=== PATIENT | male | born 1960 | race Caucasian/White ===

== ENCOUNTER 2016-04-03 15:37 | Emergency (ER) | payer OTHER ==
[~2016-04-03] VITALS: Ht 180.3 cm; Wt 83.9 kg
--- NOTE | 2016-04-03 16:14 | ED Headache ---
General Chief Complaint: Head/Cervical Problems Stated Complaint: DIZZY, HEADACHE, BLURRED VISION Nursing Triage Note: PT REPORTS HEADACHE OFF AND ON FOR SEVERAL DAYS. PT ALSO REPORTS DIZZINESS. PT ALSO REPORTS DIFFICULTY SEEING OUT OF R EYE STARTING SINCE YESTERDAY EVENING. Nursing Sepsis Screen: No Definite Risk Source: patient Exam Limitations: no limitations History of Present Illness Time seen by provider: 16:07 Initial Comments Patient presents with 3-4 weeks of malaise followed by 3 days most recently with a headache every day lasting for 2-3 hours accompanied by blindness in his right eye. He does not have a history of headaches or migraines never had this neurologic symptoms before. He has no other problems with his gait or mobility. He is taken out of [place] and that helps the headache some. He describes a headache as non-throbbing constant lasting about 1-3 hours feeling" behind his right eye like a softball. He also describes she's had upper respiratory symptoms for the past few weeks. The patient states he has had some chills with past couple days but denies having a thermometer. He has also been taking ibuprofen around the clock 3-4 pills every 6-8 hours. Allergies and Home Medications Allergies Coded Allergies: Penicillins (Verified Allergy, Unknown, 04/03/16) Home Medications No Active Prescriptions or Reported Meds Constitutional: chillsNo diaphoresis, No dizziness, No fever, malaiseNo weakness Eyes: Blindness (right eye with HAAS)Denies Blurred Vision, Denies Drainage, Denies Decreased Acuity, Denies Foreign Body Sensation, Denies Pain Ears, Nose, Mouth, Throat: denies ear pain, denies ear discharge Respiratory: cough (occ)No short of breath Cardiovascular: No chest pain, No edema, No syncope Gastrointestinal: No abdominal pain, No constipation, No diarrhea Genitourinary: No dysuria, No frequency Musculoskeletal: No back pain, No neck pain Skin: No pruritus, No rash Psychiatric/Neurological: HeadacheDenies Numbness, Denies Paresthesia Past Ukjdvix-Zqscaa-Ihbfsl Hx Patient Social History Alcohol Use: Occasionally Uses Recreational Drug Use: No Smoking Status: Never a Smoker Recent Foreign Travel: No Contact w/Someone Who Travel: No Recent Infectious Disease Expo: No Recent Hopitalizations: No Physical Abuse Screen: No Sexual Abuse: No Seasonal Allergies Seasonal Allergies: No Surgeries HX Surgeries: No Respiratory Hx Respiratory Disorders: No Cardiovascular Hx Cardiac Disorders: No Neurological Hx Neurological Disorders: No Reproductive System Hx Reproductive Disorders: No Genitourinary Hx Genitourinary Disorders: No Gastrointestinal Hx Gastrointestinal Disorders: No Musculoskeletal Hx Musculoskeletal Disorders: No Endocrine Hx Endocrine Disorders: No HEENT HX ENT Disorders: No Cancer Hx Cancer: No Psychosocial Hx Psychiatric Problems: No Integumentary HX Skin/Integumentary Disorder: No Blood Transfusions Hx Blood Disorders: No Physical Exam Vital Signs Vital Sign - Last 12Hours 04/03/16 15:46 Temp 97.9 Pulse 58 Resp 18 B/P 166/102 Pulse Ox 96 Capillary Refill : Less Than 3 Seconds General Appearance: WD/WN mild distress HEENT: PERRL/EOMI pharynx normal other (TMs bilaterally with retraction right worse than left and clear serous effusion. Canals clear without erythema or lesion.) Neck: non-tender full range of motion supple normal inspection Cardiovascular: normal peripheral pulses regular rate, rhythm no edema no JVD Respiratory: chest non-tender lungs clear normal breath sounds Gastrointestinal: normal bowel sounds non tender soft Back: normal inspection no vertebral tenderness Extremities: normal range of motion non-tender normal inspection Psychiatric: alert oriented x 3 Crainal Nerves: normal hearing normal speech PERRL other (cranial nerves II through XII intact) Coordination/Gait: normal finger to nose normal gait Motor/Sensory: no motor deficit no sensory deficit no pronator drift Reflexes: 2+ Bicep (R), 2+ Bicep (L) Skin: normal color warm/dry Progress/Results/Core Measures Results/Orders Lab Results Laboratory Tests Test 04/03/16 16:40 Range/Units Anion Gap 10 5-14 MMOL/L BUN/Creatinine Ratio 14 Basophils # (Auto) 0.0 0.0-0.1 10^3/uL Basophils (%) (Auto) 0 0-10 % Blood Urea Nitrogen 15 7-18 MG/DL Calcium Level 8.4 L 8.5-10.1 MG/DL Carbon Dioxide Level 20 L 21-32 MMOL/L Chloride Level 108 H 98-107 MMOL/L Creatinine 1.10 0.60-1.30 MG/DL Eosinophils # (Auto) 0.1 0.0-0.3 10^3/uL Eosinophils (%) (Auto) 2 0-10 % Estimat Glomerular Filtration Rate > 60 Glucose Level 117 H 70-105 MG/DL Hematocrit 39 L 40-54 % Hemoglobin 13.9 13.3-17.7 G/DL Lymphocytes # (Auto) 1.5 1.0-4.0 X 10^3 Lymphocytes (%) (Auto) 27 12-44 % Mean Corpuscular Hemoglobin 32 25-34 PG Mean Corpuscular Hemoglobin Concent 35 32-36 G/DL Mean Corpuscular Volume 90 80-99 FL Mean Platelet Volume 9.3 7.4-10.4 FL Monocytes # (Auto) 0.4 0.0-1.0 X 10^3 Monocytes (%) (Auto) 8 0-12 % Neutrophils # (Auto) 3.5 1.8-7.8 X 10^3 Neutrophils (%) (Auto) 64 42-75 % Platelet Count 199 130-400 10^3/uL Potassium Level 3.9 3.6-5.0 MMOL/L Red Blood Count 4.37 4.35-5.85 10^6/uL Red Cell Distribution Width 12.0 10.0-14.5 % Sodium Level 138 135-145 MMOL/L White Blood Count 5.5 4.3-11.0 10^3/uL Micro Results Microbiology 04/03/16 Influenza Types A,B Antigen (GLORIA) - Final, Complete My Orders Orders-CARMEN RIVERA MD Ct Head Wo (04/03/16 16:15) Basic Metabolic Panel (04/03/16 16:15) Cbc With Automated Diff (04/03/16 16:15) Influenza A And B Antigens (04/03/16 16:15) Ketorolac Injection (Toradol Injection) (04/03/16 16:15) Ondansetron Oral Dissolve Tab (Zofran (04/03/16 16:15) Saline Lock/Iv-Start (04/03/16 16:15) Ns (Ivpb) (Sodium C... W/Nicardipine Iv (04/03/16 17:30) Vital Signs/I&O Vital Sign - Last 12Hours 04/03/16 15:46 Temp 97.9 Pulse 58 Resp 18 B/P 166/102 Pulse Ox 96 Blood Pressure Mean: 123 Progress Note : Time: 16:23 Progress Note Patient with a new onset of migrainous-type headaches behind the right eye recurring after 3-4 weeks of malaise that may be related to viral illness, migraine headaches CVA or mass. We will scan his head with a CT without. Obtain CBC, BMP and treat his symptoms with NSAIDs and Zofran for now. Diagnostic Imaging Diagonstic Imaging: CT Plain Films/CT/US/NM/MRI: head Comments Right occiput mass/bleed without midline deviation. Surrounding edema. NAME: VIVEK FIERRO [facility] REC#: [id number] PHYSICIAN: CARMEN RIVERA MD CC: MERY COLLAZO DO; CARMEN RIVERA MD Page 1 of 1 RADIOLOGY REPORT VIA [facility]. [place], [place] CC: MERY COLLAZO DO; CARMEN RIVERA MD Page 1 of 1 RADIOLOGY REPORT NAME: VIVEK FIERRO [facility] REC#: [id number] PT STATUS: REG ER : 1960 PHYSICIAN: CARMEN RIVERA MD ADMIT DATE: 04/03/16/ER Signed Date of Exam: 04/03/16 CT HEAD WO PROCEDURE: CT head without contrast. TECHNIQUE: Multiple contiguous axial images were obtained through the brain without the use of intravenous contrast. INDICATION: Headache and dizziness. COMPARISON: None. FINDINGS: There is a 2.2 cm x 2.3 cm acute right occipital lobe hemorrhage with mild surrounding edema. This is a location suggestive of a hypertensive hemorrhage but is nonspecific. There is no midline shift. No additional intracranial hemorrhage is seen. Euceda-white junction appears preserved. The ventricles appear normal. No osseous abnormality is seen. Paranasal sinuses and mastoids appear clear. IMPRESSION: There is a 2.3 cm acute right occipital lobe hemorrhage of uncertain etiology although the location is suggestive of a hypertensive bleed. Findings were phoned to Dr. Rivera in the [facility] ER at the time of dictation. Dictated by: Dictated on workstation # [id number] Dict: 04/03/161646 Trans: 04/03/161656 [facility] [id number] Interpreted by: MERY COLLAZO DO Electronically signed by:MERY COLLAZO DO 04/03/16 1659 Time of Consult: 17:01 Reviewed: Reviewed by Me Consults Consults : Consults Notes Dr Braun, Neurosurgery [place], [place]. Recommends we send him to [place] [facility] by [facility]. ED Dr at [facility] accepts transfer of stable pt. Transfer of Care Care transferred to: ward ED Departure Impression Impression: Primary Impression: Hemorrhagic cerebrovascular accident (CVA) Disposition: XFER SHT-TRM HOSP Condition: Stable (ERASED) Transfer Transfer Notes Transfer to [facility] by [facility]. Transfer Time: 18:00 Method of Transfer: EMS Departure-Patient Inst. Decision time for Depature: 17:00 Referrals: TIP SAWYER MD (PCP/Family) Primary Care Physician Scripts No Active Prescriptions or Reported Meds CARMEN RIVERA MD Apr 03, 2016 16:14
[2016-04-03] MEDS ORDERED: KETOROLAC 30 MG/ML VIAL IVP STA (16:15)
[2016-04-03] MEDS ORDERED: ONDANSETRON 4 MG (ZOFRAN) ORAL DISSOLVE TAB SL STA (16:15)
[2016-04-03 16:49] LABS: BASOPHILS % (AUTO) 0 % (0-10); EOSINOPHILS # (AUTO) 0.1 10^3/uL (0.0-0.3); EOSINOPHILS % (AUTO) 2 % (0-10); LYMPHOCYTES # (AUTO) 1.5 X 10^3 (1.0-4.0); LYMPHOCYTES % (AUTO) 27 % (12-44); MEAN CORPUSCULAR HEMOGLOBIN 32 PG (25-34); MEAN CORPUSCULAR HGB CONC 35 G/DL (32-36); MEAN CORPUSCULAR VOLUME 90 FL (80-99); MEAN PLATELET VOLUME 9.3 FL (7.4-10.4); MONOCYTES # (AUTO) 0.4 X 10^3 (0.0-1.0); MONOCYTES % (AUTO) 8 % (0-12); NEUTROPHILS # (AUTO) 3.5 X 10^3 (1.8-7.8); NEUTROPHILS % (AUTO) 64 % (42-75); PLATELET COUNT 199 10^3/uL (130-400); RED BLOOD COUNT 4.37 10^6/uL (4.35-5.85); WHITE BLOOD COUNT 5.5 10^3/uL (4.3-11.0)
--- NOTE | 2016-04-03 16:56 | Diagnostic Imaging Report ---
PROCEDURE: CT head without contrast. TECHNIQUE: Multiple contiguous axial images were obtained through the brain without the use of intravenous contrast. INDICATION: Headache and dizziness. COMPARISON: None. FINDINGS: There is a 2.2 cm x 2.3 cm acute right occipital lobe hemorrhage with mild surrounding edema. This is a location suggestive of a hypertensive hemorrhage but is nonspecific. There is no midline shift. No additional intracranial hemorrhage is seen. Euceda-white junction appears preserved. The ventricles appear normal. No osseous abnormality is seen. Paranasal sinuses and mastoids appear clear. IMPRESSION: There is a 2.3 cm acute right occipital lobe hemorrhage of uncertain etiology although the location is suggestive of a hypertensive bleed. Findings were phoned to Dr. Rivera in the [facility] ER at the time of dictation. Dictated by: Dictated on workstation # [id number]
[2016-04-03 17:11] LABS: ANION GAP 10 MMOL/L (5-14); BLOOD UREA NITROGEN 15 MG/DL (7-18); BUN/CREATININE RATIO 14; CALCIUM 8.4 MG/DL (8.5-10.1); CARBON DIOXIDE 20 MMOL/L (21-32); CHLORIDE 108 MMOL/L (98-107); GFR ESTIMATED > 60; GLUCOSE 117 MG/DL (70-105); POTASSIUM 3.9 MMOL/L (3.6-5.0); SODIUM 138 MMOL/L (135-145)
[2016-04-03] MEDS ORDERED: NS (IVPB) 250 ML ONE (17:28)
[2016-04-03] MEDS ORDERED: niCARdipine IV 50 MG in NS (IVPB) 230 ML IV SCH (17:30)
[2016-04-03 17:59] VITALS: BP 145/84
== END 2016-04-03 17:59 | disposition short-term general hospital (02) ==
LOC: EDUNIT# 15:37 → ER 15:39
DX: I61.9 Nontraumatic intracerebral hemorrhage, unspecified (principal)
CPT/HCPCS: 36415; 70450; 80048; 85025; 87804; 96374; 96375

== ENCOUNTER → 2016-06-07 | Outpatient (CLI) | payer OTHER ==
[2016-06-07 11:57] LABS: BASOPHILS % (AUTO) 0 % (0-10); EOSINOPHILS # (AUTO) 0.1 10^3/uL (0.0-0.3); EOSINOPHILS % (AUTO) 1 % (0-10); LYMPHOCYTES # (AUTO) 1.8 X 10^3 (1.0-4.0); LYMPHOCYTES % (AUTO) 37 % (12-44); MEAN CORPUSCULAR HEMOGLOBIN 31 PG (25-34); MEAN CORPUSCULAR HGB CONC 35 G/DL (32-36); MEAN CORPUSCULAR VOLUME 91 FL (80-99); MEAN PLATELET VOLUME 9.4 FL (7.4-10.4); MONOCYTES # (AUTO) 0.4 X 10^3 (0.0-1.0); MONOCYTES % (AUTO) 8 % (0-12); NEUTROPHILS # (AUTO) 2.6 X 10^3 (1.8-7.8); NEUTROPHILS % (AUTO) 54 % (42-75); PLATELET COUNT 195 10^3/uL (130-400); RED BLOOD COUNT 4.69 10^6/uL (4.35-5.85); RED CELL DISTRIBUTION WIDTH 12.7 % (10.0-14.5); WHITE BLOOD COUNT 4.9 10^3/uL (4.3-11.0)
[2016-06-07 12:22] LABS: ALANINE AMINOTRANSFERASE 26 U/L (0-55); ALBUMIN 4.2 G/DL (3.2-4.5); ANION GAP 11 MMOL/L (5-14); ASPARTATE AMINO TRANSFERASE 21 U/L (5-34); BILIRUBIN,TOTAL 0.5 MG/DL (0.1-1.0); BLOOD UREA NITROGEN 16 MG/DL (7-18); BUN/CREATININE RATIO 18; CALCIUM 9.2 MG/DL (8.5-10.1); CARBON DIOXIDE 21 MMOL/L (21-32); CHLORIDE 110 MMOL/L (98-107); CREATININE SERUM 0.89 MG/DL (0.60-1.30); GFR ESTIMATED > 60; GLUCOSE 107 MG/DL (70-105); POTASSIUM 4.1 MMOL/L (3.6-5.0); SODIUM 142 MMOL/L (135-145); TOTAL PROTEIN 7.4 G/DL (6.4-8.2)
== END ==
LOC: LAB 11:39
PROVIDERS: ATTEND Family Medicine
DX: R10.84 Generalized abdominal pain (principal)
CPT/HCPCS: 36415; 80053; 85025

== ENCOUNTER → 2016-06-10 | Outpatient (CLI) | payer OTHER ==
[~2016-06-10] MED LIST: CATHETER FLUSH 10 ML SYR IV PRN; GADOBUTROL 10 MMOL/10 ML (GADAVIST) VIAL IV ONE; IOHEXOL 350 MG/ML 100 ML (OMNIPAQUE 350) VIAL IV ONE; NS 100 ML (IVPB) BAG IV ONE
--- NOTE | 2016-06-10 11:54 | Diagnostic Imaging Report ---
PROCEDURE: MR imaging of the brain with and without contrast. TECHNIQUE: Multiplanar, multisequence MR imaging of the brain was performed with and without contrast. INDICATION: Brain hemorrhage in the right parietal region seen on CT scan of 04/03/2016. 8 mL of Gadavist is administered intravenously. FINDINGS: The location of the previously seen hemorrhage demonstrates signal abnormality covering an area smaller to the region of hemorrhage noted by CT scan on 04/03/2016. There is minimal peripheral enhancement around the region which would relate to hemorrhagic remnants. The surrounding hyperemia could relate to evolution of the hemorrhage and gliosis rather than underlying abnormal vascularity or enhancing nodule. There is minimal periventricular and deep white matter T2 hyperintense areas compatible with chronic microvascular ischemic changes. There is no hydrocephalus. No significant extra-axial fluid collection is seen. The pituitary gland is normal in size. No hypothalamic or pineal region mass. IMPRESSION: Right parietal hemorrhage evolution is seen with signal intensity reflecting remaining blood products are noted. The area of involvement is now smaller compared to 04/03/2016. The minimal surrounding enhancement could be reactive without definitive underlying nodule or vascular anomaly. An enhanced MRI with contrast is recommended in three months to ensure further expected evolution of a simple hemorrhage and resolution of the associated minimal enhancement. Dictated by: Dictated on workstation # [id number]
--- NOTE | 2016-06-10 12:21 | Diagnostic Imaging Report ---
PROCEDURE: CT chest with contrast, CT abdomen and pelvis with and without contrast. TECHNIQUE: Pre and post intravenous contrast axial imaging of the abdomen and pelvis and post contrast axial imaging of the chest were performed. INDICATION: Generalized abdominal pain. Followup of kidney and lung nodules seen on outside exam. The outside exam was requested however is not available at the time of the interpretation. 100 mL of Omnipaque 350 is administered intravenously. FINDINGS: CT CHEST: There is a pulmonary nodule in the right lower lobe, axial image 29 measuring 1.3 cm. There is surrounding mild interstitial thickening and groundglass opacity particularly along its upper aspect. It is located in the superior segment of the right lower lobe at the level of the hilum. Another nodule measuring 4 mm in axial image 31 in the right middle lobe along the minor fissure seen. Another 4 mm nodule along the major fissure in the perihilar region is also seen, also on axial image 31. There are calcified granulomas in the left lower lobe. No significant consolidation or mass seen otherwise in the lungs. The thoracic aorta is normal in caliber. The heart size is normal. No pericardial or pleural effusion. No significantly enlarged mediastinal or hilar lymph nodes. No axillary lymphadenopathy of significance. The osseous structures appear grossly unremarkable. CT ABDOMEN AND PELVIS: There is diffuse hepatic steatosis. The gallbladder demonstrates no calcified stone. The pancreas, and adrenals appear unremarkable. The spleen is mildly enlarged measuring 15.5 x 5.8 x 10.3 cm in size. The kidneys have symmetric enhancement and contrast excretion. In the lower pole of the left kidney, there is an anteriorly exophytic mass measuring 1.5 cm with post contrast enhancement noted. It appears to have low density components compatible with fat. This is suggestive of an angiomyolipoma. The lower pole of the right kidney demonstrates a cystic mass with suggestion of a small enhancing nodule measuring 4 mm in its inferior aspect. This appears to be within an exophytic portion of the cystic lesion best seen on the coronal projection measuring 1.3 cm. The overall measurement of the cystic lesion is 3.6 cm. There is no hydronephrosis. The unenhanced phase demonstrates no stones. The abdominal aorta is normal in caliber. No para-aortic significantly enlarged lymph nodes seen. No significant free fluid or fluid collection in the abdomen or pelvis is noted. There is sigmoid diverticulosis. No diverticulitis. The prostate gland is slightly prominent measuring 4.5 cm in transverse dimension. The osseous structures demonstrate minimal degenerative changes. IMPRESSION: CT CHEST: Indeterminate 1.3 cm superior segment right lower lobe nodule and 4 mm nodules along the major and minor fissure on the right side are nonspecific. Based on the surrounding groundglass opacity, this could be infectious versus neoplastic. Clinical correlation and further evaluation with PET/CT, or if not performed a three-month followup CT chest is recommended. CT ABDOMEN AND PELVIS: 1. Exophytic 1.5 cm lower pole left kidney mass has enhancing components but also has intra-tumoral fat. This may relate to an angiomyolipoma. 2. Predominantly cystic 3.6 cm lesion exophytic from the lower pole of the right kidney with suggestion of a tiny focus of enhancement inferiorly measuring 4 mm. This could be within a septation and not necessarily a malignant component. Close followup with a three-month renal mass protocol CT scan is recommended. Dictated by: Dictated on workstation # [id number]
== END ==
LOC: RAD 09:41
PROVIDERS: ATTEND Family Medicine
DX: I62.00 Nontraumatic subdural hemorrhage, unspecified (principal); I69.398 Other sequelae of cerebral infarction; R20.9 Unspecified disturbances of skin sensation; R10.84 Generalized abdominal pain; N28.89 Other specified disorders of kidney and ureter
CPT/HCPCS: 70553; 71260; 74178

== ENCOUNTER → 2016-07-05 | Outpatient (CLI) | payer OTHER ==
[~2016-07-05] VITALS: Ht 180.3 cm; Wt 84.4 kg
[~2016-07-05] MED LIST changes: -CATHETER FLUSH 10 ML SYR IV PRN; -GADOBUTROL 10 MMOL/10 ML (GADAVIST) VIAL IV ONE; -IOHEXOL 350 MG/ML 100 ML (OMNIPAQUE 350) VIAL IV ONE; -NS 100 ML (IVPB) BAG IV ONE; +REGADENOSON 0.4 MG/5 ML SYR (LEXISCAN) IV ONE
[2016-07-05] MEDS: CATHETER FLUSH 10 ML SYR IV PRN ×2 (11:35→12:59)
[2016-07-05 12:55] VITALS: BP 119/89
--- NOTE | 2016-07-06 11:31 | ECHOCARDIOGRAPHY REPORT ---
DATE OF SERVICE: 07/05/2016 ORDERING PHYSICIAN: Dr. Irene. REFERRING PHYSICIAN: Dr. Ko. CLINICAL DIAGNOSES: Chest discomfort, syncope. MEASUREMENTS: 1. Left atrium 4.5. 2. Aortic root 2.9. 3. LV diameter, diastolic 5.2. 4. IVS thickness, diastolic 1.1. 5. LVPW thickness, diastolic 1.0. DESCRIPTION: Two-dimensional echocardiography shows normal global left ventricular systolic function with normal regional wall motion. Aortic, mitral and tricuspid valve leaflets show good leaflet excursion. There is no significant pericardial effusion. Aortic valve is trileaflet and the leaflets exhibit mild sclerosis and calcification. There is no Doppler evidence of any significant valvular stenosis. There is no Doppler evidence of any significant valvular regurgitation. Only trivial mitral regurgitation is seen. There is no evidence of any significant intracardiac shunt on this transthoracic echocardiographic study. Inferior vena cava appears to be mildly dilated. Pulmonary artery systolic pressure could not be reliably estimated on this study. CONCLUSIONS: 1. Normal global left ventricular systolic function with an ejection fraction of approximately 65%. 2. Mild aortic valve sclerosis without evidence of any significant valvular stenosis. 3. No significant valvular regurgitation. Job ID: [id number] DocumentID: [id number] Dictated Date: 07/05/2016 17:04:30 Electronics Utility Worker Date: 07/06/2016 10:22:00 Dictated By: GERMÁN IRENE MD, MA, FACP, FACC,
--- NOTE | 2016-07-06 14:51 | STRESS TEST ---
DATE OF SERVICE: 07/05/2016 RESTING AND POST REGADENOSON TECHNETIUM 99M TETROFOSMIN SPECT CT IMAGING ORDERING PHYSICIAN: Dr. Ally Irene. PRIMARY PHYSICIAN: Dr. oK. CLINICAL DIAGNOSIS: Chest discomfort, syncope, hypertension, hyperlipidemia. Baseline images were carried out after injection of 10.47 mCi of etaxkwecmx-86s-vtvsodolbhi. This was followed by 0.4 mg of regadenoson and 30.3 mCi of technetium 99m-tetrofosmin for stress imaging. The electrocardiogram showed sinus rhythm at baseline and the electrocardiogram did not change significantly with the regadenoson infusion. Incomplete right bundle branch block is seen on the electrocardiogram. The patient tolerated the procedure well. Review of images at rest and following stress does not indicate any distinct perfusion defects consistent with significant myocardial ischemia or infarction. Gaited images show normal global left ventricular systolic function without regional wall motion abnormality. Left ventricular ejection fraction is calculated to be 64%. Left ventricular end diastolic volume is 77 mL. TID is absent (0.94). CONCLUSIONS: 1. No evidence of any significant myocardial ischemia or infarction on this study. 2. Normal regional wall motion. 3. Normal global left ventricular systolic function with a calculated ejection fraction of 64%. 4. Normal left ventricular cavity size. Job ID: [id number] DocumentID: [id number] Dictated Date: 07/05/2016 16:22:04 Unit Aide Date: 07/06/2016 08:17:40 Dictated By: ALLY IRENE MD, MA, FACP, FACC,
== END ==
LOC: CARD 09:02
PROVIDERS: ATTEND Internal Medicine Cardiovascular Disease
DX: I10 Essential (primary) hypertension (principal); E78.4 Other hyperlipidemia; R07.89 Other chest pain; R55 Syncope and collapse
CPT/HCPCS: 78452; 93017; 93306

== ENCOUNTER → 2016-09-23 | Outpatient (CLI) | payer OTHER ==
[2016-09-23 16:48] LABS: BLOOD UREA NITROGEN 18 MG/DL (7-18); BUN/CREATININE RATIO 16; GFR ESTIMATED > 60
== END ==
LOC: LAB 16:12
PROVIDERS: ATTEND Family Medicine
DX: N28.89 Other specified disorders of kidney and ureter (principal); R91.1 Solitary pulmonary nodule; I62.00 Nontraumatic subdural hemorrhage, unspecified
CPT/HCPCS: 36415; 82565; 84520

== ENCOUNTER → 2016-09-30 | Outpatient (CLI) | payer OTHER ==
[~2016-09-30] MED LIST changes: +GADOBUTROL 10 MMOL/10 ML (GADAVIST) VIAL IV ONE; -REGADENOSON 0.4 MG/5 ML SYR (LEXISCAN) IV ONE
--- NOTE | 2016-09-30 10:15 | Diagnostic Imaging Report ---
CLINICAL INDICATION: Patient has history of a stroke on 04/01/2016. Patient has a history of melanoma on back over 15 years ago. Patient has headaches off-and-on. EXAM: An MRI of the brain was performed without and with 8 cc of Gadovist IV contrast. Sequences include axial DWI, ADC map, axial gradient echo, axial T2, axial FLAIR, axial T1, axial T1 post IV contrast, coronal T1 fat-sat post IV contrast, and sagittal T1 post IV contrast. COMPARISON: MRI of the brain performed without and with IV contrast dated 06/10/2016. FINDINGS: There is interval development of a 4 mm focal area of diffusion restriction involving the posterior aspect of the right occipital lobe. There is focal high T2 signal seen in the region on the axial T2 sequence. There is no associated enhancement. This likely represents an acute or subacute focal infarct. There are no other areas concerning for acute cerebral infarct, acute intracranial hemorrhage, or abnormal IV contrast enhancement. There is no evidence of metastatic disease. There is continued evolution of the previously seen intraparenchymal hemorrhage involving the right parietal lobe which now has chronic signal characteristics. There is residual low gradient echo signal hemosiderin in the region. There is minimal adjacent high T2 signal gliosis and encephalomalacia. Again seen are a few focal areas of high T2 signal matter changes in both cerebral hemispheres, likely representing chronic small vessel ischemic disease. The pituitary gland, sella, and suprasellar regions are unremarkable as visualized. The [place] vascular structures show no gross abnormality as visualized. The basal cisterns are unremarkable. There is no evidence of hydrocephalus. The extracranial soft tissue, skull, and orbits are unremarkable. The paranasal sinuses show no significant disease. IMPRESSION: 1. There is a punctate focal area of acute or subacute parenchymal infarct in the right occipital lobe. This is likely related to small vessel ischemic disease. 2. Interval evolution of the now chronic intraparenchymal hemorrhage in the right parietal lobe. 3. Otherwise, stable age related brain parenchymal changes. 4. The report was stat faxed to the office of Dr. Ko by fadumo@10:15 AM. Dictated by: Dictated on workstation # [id number]
== END ==
LOC: RAD 07:41
PROVIDERS: ATTEND Family Medicine
DX: I62.00 Nontraumatic subdural hemorrhage, unspecified (principal); R91.1 Solitary pulmonary nodule; R51 Headache; Z85.820 Personal history of malignant melanoma of skin
CPT/HCPCS: 70553

== ENCOUNTER → 2016-10-04 | Outpatient (CLI) | payer OTHER ==
[~2016-10-04] MED LIST changes: +CATHETER FLUSH 10 ML SYR IV PRN; -GADOBUTROL 10 MMOL/10 ML (GADAVIST) VIAL IV ONE; +IOHEXOL 350 MG/ML 100 ML (OMNIPAQUE 350) VIAL IV ONE; +LOSA50TA36 PO; +NS 100 ML (IVPB) BAG IV ONE; +OMG1KC PO; +UBID100C17 PO
--- NOTE | 2016-10-04 13:11 | Diagnostic Imaging Report ---
PROCEDURE: CT chest with contrast, CT abdomen and pelvis with and without contrast. TECHNIQUE: Pre and post intravenous contrast axial imaging of the abdomen and pelvis and post contrast axial imaging of the chest were performed. INDICATION: Followup of renal mass. COMPARISON: Comparison with 06/10/2016. FINDINGS: CT CHEST: The lungs are well aerated. The nodule with irregular appearance in the superior segment of the right lower lobe is again demonstrated and unchanged measuring approximately 12 mm in greatest dimension. The paraseptal nodule in the superior segment of the right lower lobe is essentially unchanged measuring approximately 4-5 mm. The nodule in the right middle lobe measuring 3 mm is also unchanged. No new lesions have developed. The left lung is clear. There is good opacification of the aorta and pulmonary arteries. No evidence of aortic aneurysm. Atherosclerotic changes of the coronary arteries. No mediastinal or hilar adenopathy of pathologic size. No pleural effusions or pericardial effusion. No destructive bony lesion. IMPRESSION: 1. Multiple nodules in the right lung largest measuring 12 mm. These do not appear to have changed significantly in appearance since May 2016. CT ABDOMEN AND PELVIS: The 15 mm exophytic lesion within the lower pole of the left kidney is unchanged. This again shows some enhancement with fatty appearing matrix intermingled. The septated cyst in the right kidney also is unchanged in appearance. No new renal lesions have developed. No evidence of hydronephrosis or renal calculi. The liver appears normal. Gallbladder and bile ducts are normal. Pancreas is normal. There continues to be mild splenomegaly which is unchanged. The adrenal glands appear normal. The stomach and small bowel are not distended. The colon shows normal stool and gas pattern. There is diverticulosis of the descending and sigmoid colon without evidence of diverticulitis. No pelvic masses. There is good opacification of the aorta and abdominal vessels which shows scattered atherosclerotic changes. No evidence of aneurysm. No intra-abdominal adenopathy of pathologic size. IMPRESSION: 1. Stable appearing cyst in the lower pole of the right kidney. Stable appearing fatty enhancing lesion in the lower pole of the left kidney. These do favor a benign process. Would recommend subsequent 6-12 month followup to confirm long-term stability. Dictated by: Dictated on workstation # [id number]
== END ==
LOC: RAD 09:47
PROVIDERS: ATTEND Nurse Practitioner Family
DX: R91.8 Other nonspecific abnormal finding of lung field (principal); N28.1 Cyst of kidney, acquired; N28.89 Other specified disorders of kidney and ureter
CPT/HCPCS: 71260; 74178

== ENCOUNTER 2016-11-23 12:00 | Outpatient (CLI) | payer OTHER ==
[~2016-11-23] VITALS: Ht 180.3 cm; Wt 83.5 kg
[~2016-11-23 12:00] MED LIST changes: -CATHETER FLUSH 10 ML SYR IV PRN; -IOHEXOL 350 MG/ML 100 ML (OMNIPAQUE 350) VIAL IV ONE; -NS 100 ML (IVPB) BAG IV ONE
== END 2016-11-23 12:48 ==
LOC: PREOP 12:00
PROVIDERS: ATTEND Surgery
DX: Z01.818 Encounter for other preprocedural examination (principal); Z12.11 Encounter for screening for malignant neoplasm of colon

== ENCOUNTER 2016-11-25 10:26 | Day surgery (SDC) | payer OTHER ==
[~2016-11-25] VITALS: Ht 180.3 cm; Wt 83.5 kg
[2016-11-25] MEDS ORDERED: LIDOCAINE JELLY 2% (XYLOCAINE) 5 ML TUBE MM PRN (10:45)
[2016-11-25] MEDS ORDERED: NS IV 500 ML 500 ML IV SCH (10:45)
[2016-11-25 10:56] VITALS: BP 132/95
[2016-11-25] MEDS ORDERED: fentaNYL INJECTION 100 MCG/2 ML AMP ONE ×2 (11:26→11:27)
[2016-11-25] MEDS ORDERED: LIDOCAINE JELLY 2% (XYLOCAINE) 5 ML TUBE ONE (11:26)
[2016-11-25] MEDS ORDERED: MIDAZOLAM 2 MG/2 ML (VERSED) VIAL ONE ×4 (11:27)
--- NOTE | 2016-11-25 11:27 | Progress Note-Pre Operative ---
Pre-Operative Progress Note H&P Reviewed The H&P was reviewed, patient examined and no changes noted. Date Seen by Provider: Nov 25, 2016 Time Seen by Provider: 11:11 Date H&P Reviewed: Nov 25, 2016 Time H&P Reviewed: 11:11 Pre-Operative Diagnosis: screening colonoscopy ERIN CABRERA MD Nov 25, 2016 11:27 am
--- NOTE | 2016-11-25 11:27 | Conscious Sedation/ASA ---
Conscious Sedation Pre-Proced Time Reviewed: 11:11 ASA Class: 2 Airway Mallampati Classification: ([place] appropriate class) I. II. III, IV Lungs Heart ASA score ASA 1: a normal healthy patient ASA 2: a patient with a mild systemic disease (mid diabetes, controlled hypertension, obesity ASA 3: a patient with a severe systemic disease that limits activity (angina , COPD, prior Myocardial infarction) ASA 4: a patient with an incapacitating disease that is a constant threat to life (CHF, renal failure) ASA 5: a moribund patient not expected to survive 24 hrs. (ruptured aneurysm) ASA 6: a declared brain patient whose organs are being harvested. For emergent operations, add the letter E after the classification Grade 2 Sedation Plan: Analgesia, Amnesia, Plan communicated to team members, Discussed options with patient/fam, Discussed risks with patient/fam Note The patient is an appropriate candidate to undergo the planned procedure, sedation, and anesthesia. The patient immediately re-assessed prior to indication. ERIN CABRERA MD Nov 25, 2016 11:27 am
[2016-11-25] MEDS ORDERED: ACETAMINOPHEN 325 MG TABLET/CAPLET (TYLENOL) PO PRN (11:30)
[2016-11-25] MEDS ORDERED: HYDROcodone/APAP 5 MG/325 MG (LORTAB) TAB PO PRN (11:30)
[2016-11-25] MEDS ORDERED: morphine INJ 10 MG/ML 1ML (SYR OR VIAL) IV PRN (11:30)
[2016-11-25] MEDS ORDERED: ONDANSETRON 4 MG/2 ML (SDV) Z0FRAN IV PRN (11:30)
[2016-11-25] MEDS: fentaNYL INJECTION 100 MCG/2 ML AMP IVP PRN ×2 (11:58→12:01)
[2016-11-25] MEDS: MIDAZOLAM 2 MG/2 ML (VERSED) VIAL IVP PRN ×3 (11:59→12:08)
--- NOTE | 2016-11-25 12:30 | Progress Note-Post Operative ---
Post-Operative Progess Note Surgeon (s)/Cattle Farmer (s) Surgeon ERIN CABRERA MD Cattle Farmer: none Pre-Operative Diagnosis screening colonoscopy Post-Operative Diagnosis mild sigmoid diverticulosis Procedure & Operative Findings Date of Procedure 11/25/16 Procedure Performed/Findings Colonoscopy. Anesthesia Type CS Estimated Blood Loss Estimated blood loss (mL): minimal Specimens/Packing Specimens Removed none ERIN CABRERA MD Nov 25, 2016 12:30 pm
--- NOTE | 2016-11-25 12:31 | Discharge Inst-Surgical ---
D/C Lap Instructions-DEBORAH Follow Up 10 years Activity as tolerated High Fiber Diet 25g or more per day Avoid Alcohol, Caffeine, Spicy [place] and Acid foods. Drink 64 fluid oz or more of fluids per day. Symptoms to Report: Fever over 101 degree F, Nausea/Vomiting If any problems/questions: Contact your physician or go to Emergency Room ERIN CABRERA MD Nov 25, 2016 12:31 pm
[2016-11-25 12:45] VITALS: BP 105/76
[2016-11-25 13:10] VITALS: BP 116/89
[2016-11-25 13:15] VITALS: BP 116/89
--- NOTE | 2016-11-25 21:58 | OPERATIVE REPORT ---
DATE OF SERVICE: 11/25/2016 ATTENDING PRIMARY CARE PHYSICIAN: Dr. Cristo Ko. PREOPERATIVE DIAGNOSIS: Screening colonoscopy. POSTOPERATIVE DIAGNOSIS: Mild sigmoid diverticulosis. PROCEDURE: Colonoscopy. SURGEON: Dr. Cabrera. ANESTHESIA: Conscious sedation. ESTIMATED BLOOD LOSS: Minimal. FINDINGS: Mild sigmoid diverticulosis, no polyps or any neoplasms identified. DISPOSITION: The patient tolerated the procedure well. INDICATIONS: The patient is a 56-year-old male in need of a screening colonoscopy. He has not had a colonoscopy up to this point in his life. For the most part he states that he is doing well and has no major issues with diarrhea nor constipation as well as no red blood per rectum nor any dark tarry stools. He also does not have any family history of colon cancer. 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 DESCRIPTION OF PROCEDURE: The patient was brought to the endoscopy suite, laid in the left lateral decubitus position. After adequate IV pain and sedative medications and conscious sedation anesthesia, a digital rectal examination was performed. No significant hemorrhoids were identified. Normal sphincter tone was felt and there were no palpable masses. Prostate gland was palpable and appeared normal. The endoscope was then intubated to the anus and rectum and gently insufflated. The endoscope was then advanced to the valves of [place] of the rectum with no polyps or any neoplasms identified. To the sigmoid colon, a mild sigmoid diverticulosis was identified. There were no mucosal inflammatory changes to indicate any active diverticulitis. The endoscope was then advanced to the remainder of the descending, transverse and ascending colon to the cecum. These segments were normal. There were no polyps or any neoplasms identified throughout the colon or rectum. The endoscope was then slowly withdrawn while taking a second look and suctioning of residual air with no additional findings. The patient tolerated the procedure well. We will recommend continued medical management with a high fiber diet with at least 30 grams of fiber per day as well as at least 64 fluid ounces of water daily to promote soft stools on a daily basis. He does not need another colonoscopy for another 10 years. Job ID: [id number] DocumentID: [id number] Dictated Date: 11/25/2016 12:28:40 Rules Examiner Date: 11/25/2016 21:57:46 Dictated By: ERIN CABRERA MD [facility]
== END 2016-11-25 13:15 | disposition home or self-care (01) ==
LOC: ENDO 10:26
PROVIDERS: ATTEND Surgery
DX: Z12.11 Encounter for screening for malignant neoplasm of colon (principal); K57.30 Diverticulosis of large intestine without perforation or abscess without bleeding; E78.1 Pure hyperglyceridemia; Z86.73 Personal history of transient ischemic attack (TIA), and cerebral infarction without residual deficits; Z79.899 Other long term (current) drug therapy

== ENCOUNTER 2017-02-08 06:31 | Emergency (ER) | payer OTHER ==
[~2017-02-08] VITALS: Ht 180.3 cm; Wt 83.9 kg
[2017-02-08] MEDS ORDERED: ONDA4TAB11 PO (06:57)
--- NOTE | 2017-02-08 06:57 | ED GI ---
General Chief Complaint: Abdominal/GI Problems Stated Complaint: DEHYDRATED,VOMITING,FEVER,DIARRHEA Nursing Triage Note: PT TO ED 5 W/ C/O N/V/D ONSET MONDAY AM. REPORTS SOME IMPROVEMENT BUT SYMPTOMS WORSENED LAST NOC AFTER EATING MACARONI AND CHEESE. Sepsis Screen: No Definite Risk Source of Information: Patient Exam Limitations: No Limitations History of Present Illness Time Seen By Provider: 06:47 Initial Comments Patient presents to ER by private conveyance with chief complaint that 2 days ago he began to experience some crampy abdominal pain that preceded watery copious diarrhea. He is also having some nausea and vomiting. He says he started feeling a little better yesterday but then last night the diarrhea and nausea return. He is not using Imodium yet he stopped drinking fluids taking this would help slow down the diarrhea however he now has malaise and feels dehydrated. He only has pain right before the diarrhea and feels crampy, intermittent, right-sided. He's had no surgeries on his abdomen. Seen no blood in the stool or vomiting. He has no shortness of breath, chest pain, cough, rash , fevers. He took Tylenol last night. Allergies and Home Medications Allergies Coded Allergies: Penicillins (Verified Allergy, Unknown, 04/03/16) atorvastatin (Verified Allergy, Unknown, 11/23/16) ceftriaxone (Verified Allergy, Unknown, 11/23/16) niacin (Verified Allergy, Unknown, 11/23/16) rosuvastatin (Verified Allergy, Unknown, 11/23/16) Home Medications Losartan Potassium 50 Mg Tablet, 50 MG PO DAILY, (Reported) [place] 3 Polyunsat Fatty Acids 1,000 Mg Cap, 2,000 MG PO DAILY, (Reported) take 2 (1,000mg) tabs Ubidecarenone 100 Mg Capsule, 100 MG PO DAILY, (Reported) Review of Systems Constitutional: No chills, No fever, malaise Respiratory: Denies Cough, Denies Shortness of Air Cardiovascular: Denies Chest Pain, Denies Palpitations Gastrointestinal: See HPI, Abdominal Pain (intermittent cramping), Denies Constipated, Diarrhea, Nausea, Vomiting Genitourinary: Denies Burning, Denies Discharge Skin: No pruritus, No rash Psychiatric/Neurological: Denies Headache, Denies Numbness, Denies Paresthesia Past [id number]-[id number] Hx Patient Social History Alcohol Use: Denies Use Number of Drinks Today: AA Alcohol Beverage of Choice: Beer Recreational Drug Use: No Smoking Status: Never a Smoker Recent Foreign Travel: No Contact w/Someone Who Travel: No Recent Infectious Disease Expo: No Recent Hopitalizations: No Physical Abuse: No Sexual Abuse: No Mistreated: No Fear: No Seasonal Allergies Seasonal Allergies: Yes (mild) Surgeries History of Surgeries: Yes (skin lesion removed from back) Respiratory History of Respiratory Disorde: No Cardiovascular History of Cardiac Disorders: No Neurological History of Neurological Disord: Yes Neurological Disorders: Stroke Reproductive System Hx Reproductive Disorders: No Gastrointestinal History of Gastrointestinal Di: No Musculoskeletal History of Musculoskeletal Dis: No Endocrine History of Endocrine Disorders: No Cancer History of Cancer: No Psychosocial History of Psychiatric Problem: No Suicide Risk Score: 0 Integumentary History of Skin or Integumenta: No Blood Transfusions History of Blood Disorders: No Physical Exam Vital Signs VS - Last 72 Hours, by Label 02/08/17 06:38 Temp 97.0 Pulse 78 Resp 20 B/P (MAP) 144/98 Pulse Ox 96 O2 Delivery Room Air Capillary Refill : Less Than 3 Seconds General Appearance: WD/WN, mild distress HEENT: PERRL/EOMI, pharynx normal Neck: non-tender, normal inspection Respiratory: chest non-tender, lungs clear, normal breath sounds Cardiovascular: normal peripheral pulses, regular rate, rhythm, no edema Peripheral Pulses: 2+ Radial Pulses (R), 2+ Radial Pulses (L) Gastrointestinal: normal bowel sounds, non tender, soft, No rebound, other ( negative for Demarco sign. No mesenteric symptoms.) Extremities: non-tender, normal inspection, no pedal edema, normal capillary refill Neurologic/Psychiatric: alert, oriented x 3 Skin: normal color, warm/dry Progress/Results/Core Measures Results/Orders My Orders Orders - CARMEN DIEGO Ondansetron Oral Dissolve Tab (Zofran (02/08/17 07:00) Vital Signs/I&O Vital Sign - Last 12Hours 02/08/17 06:38 Temp 97.0 Pulse 78 Resp 20 B/P (MAP) 144/98 Pulse Ox 96 O2 Delivery Room Air Blood Pressure Mean: 113 Progress Note : Time: 06:53 Progress Note Discussed the option of putting an IV in and drying blood work and urine and working him up for dehydration but as he does not really have a surgical belly and his history is consistent with a viral gastroenteritis would also be reasonable if he can drink to just go home drink fluids use Zofran and Imodium take a day or 2 off from work. He would prefer the latter option. Departure Impression Impression: Primary Impression: Gastroenteritis and colitis, viral Disposition: 01 HOME, SELF-CARE Condition: Stable Departure-Patient Inst. Decision time for Depature: 06:54 Referrals: TIP SAWYER MD (PCP/Family) Primary Care Physician Patient Instructions: Viral Gastroenteritis, Adult (DC) Add. Discharge Instructions: I encourage to drink lots of clear fluids. Avoid caffeine. Eat a bland diet consisting of bananas, rice, applesauce, toast or similar things. You may slowly advance your diet as you tolerate it. If you're having nausea you may place one tablet of Zofran under your tongue allowed to absorb every 6 hours as needed. When you get home take 2 tablets of Imodium and then every 4 hours after that if you're still having watery diarrhea take another tablet. If you go more than 8 hours without taking a tablet and begin to have diarrhea again start over with 2 tablets. Return to your doctor or the ER if you can no longer tolerate oral fluids begin to have high fevers, shortness of breath, chest pain or intractable nausea and vomiting. All discharge instructions reviewed with patient and/or family. Voiced understanding. Scripts Ondansetron (Ondansetron Odt) 4 Mg Tab.rapdis 4 MG PO Q6H Y for NAUSEA/VOMITING, #8 TAB 0 Refills Prov: CARMEN DIEGO 02/08/17 Copy Copies To 1: TIP SAWYER MD, TITUS J Feb 08, 2017 06:57
[2017-02-08] MEDS ORDERED: ONDANSETRON 4 MG (ZOFRAN) ORAL DISSOLVE TAB PO ONE (07:00)
[2017-02-08 07:15] VITALS: BP 144/98
== END 2017-02-08 07:15 | disposition home or self-care (01) ==
LOC: EDUNIT# 06:31 → ER 06:33
DX: A08.4 Viral intestinal infection, unspecified (principal)
CPT/HCPCS: 99283

== ENCOUNTER → 2017-06-20 | Outpatient (CLI) | payer OTHER ==
[~2017-06-20] MED LIST changes: +ONDA4TAB11 PO
== END ==
LOC: LAB 16:51
PROVIDERS: ATTEND Family Medicine
DX: N28.9 Disorder of kidney and ureter, unspecified (principal); R91.1 Solitary pulmonary nodule; I62.00 Nontraumatic subdural hemorrhage, unspecified

== ENCOUNTER → 2017-06-22 | Outpatient (CLI) | payer OTHER ==
[2017-06-20 17:33] LABS: BUN/CREATININE RATIO 16; CREATININE SERUM 0.96 MG/DL (0.60-1.30); GFR ESTIMATED > 60
[~2017-06-22] MED LIST changes: +GADOBUTROL 10 MMOL/10 ML (GADAVIST) VIAL IV ONE
--- NOTE | 2017-06-22 18:59 | Diagnostic Imaging Report ---
PROCEDURE: MR imaging of the brain with and without contrast. TECHNIQUE: Multiplanar, multisequence MR imaging of the brain was performed with and without contrast. INDICATION: History of CVA. History of melanoma. Headaches. FINDINGS: The ventricles are normal in size, shape, and position. There is no diffusion restriction with no acute parenchymal edema, hemorrhage, mass, or abnormal parenchymal enhancement. There is focal area of encephalomalacia in the right occipital lobe at the site of previously seen infarct on the study from 09/30/2016. There is no extra-axial mass or abnormal meningeal enhancement. IMPRESSION: No acute abnormality is seen. There is focal encephalomalacia from a prior infarct in the right occipital lobe. Dictated by: Dictated on workstation # [id number]
== END ==
LOC: RAD 16:54
PROVIDERS: ATTEND Family Medicine
DX: I69.398 Other sequelae of cerebral infarction (principal); G93.89 Other specified disorders of brain; Z85.820 Personal history of malignant melanoma of skin
CPT/HCPCS: 36415; 70553; 82565; 84520

== ENCOUNTER → 2017-07-10 | Outpatient (CLI) | payer OTHER ==
[~2017-07-10] MED LIST changes: -GADOBUTROL 10 MMOL/10 ML (GADAVIST) VIAL IV ONE; +IOHEXOL 350 MG/ML 100 ML (OMNIPAQUE 350) VIAL IV ONE; +NS 250 ML (IVPB) BAG IV ONE
--- NOTE | 2017-07-10 17:52 | Diagnostic Imaging Report ---
PROCEDURE: CT chest, abdomen, and pelvis with and without contrast. TECHNIQUE: Precontrast images were obtained of the chest, abdomen, and pelvis. Multiple contiguous axial images were obtained through the chest, abdomen, and pelvis after administration of intravenous contrast. INDICATION: Pulmonary nodule, renal mass. History of melanoma. CORRELATION STUDY: 06/10/2016, 10/04/2016. FINDINGS: CT CHEST: Few very small but non pathologically enlarged mediastinal lymph nodes are present. The heart size is within normal limits with scattered mild coronary artery calcification. Thoracic aortic contour is unremarkable. EG junction is unremarkable. Multiple pulmonary nodules are again demonstrated. The dominant nodule in the superior segment of the right lower lobe with central small calcification measures 13 mm in maximum dimension, previously 12 mm in maximum dimension. There are a few small adjacent nodules present. These were not definitively visualized on prior imaging but the largest one slightly more laterally and inferiorly measures 4 mm. Additional areas of nodularity appearing to be along the fissure plane are present. One along the major fissure plane measures 6 mm and additional one in minor fissure plane is 5 mm, stable to perhaps very minimally increased in size. Few calcified granulomas are present. No pulmonary infiltrate. No effusion. CT ABDOMEN and PELVIS: Liver, spleen, pancreas, gallbladder, and adrenal glands appearing unchanged and unremarkable. Low-density exophytic mass off the inferior pole of the right kidney is present. It currently measures 4.3 x 3.4 cm. It does appear to be slightly increased from prior study. Additionally, there is a slightly asymmetric nodularity along the posterolateral peripheral aspect with faint calcification noted. No appreciable enhancement. Right renal parenchyma is otherwise unremarkable. Heterogeneous partially exophytic mass off the anteroinferior pole of the left kidney or cyst measures 18 x 13 mm. At baseline, measured 15 x 13 mm. Low-density attenuation compatible with fat is present without significant calcification. The renal parenchyma is unremarkable. No hydronephrosis. Abdominal aorta with mild ectasia and mild wall calcification. Gastrointestinal tract demonstrates no obstruction or inflammatory change. Few colonic diverticula are present. Urinary bladder is unremarkable. Prostate gland is enlarged. Mildly advanced degenerative changes about the lumbar spine. Likely, tiny intramuscular lipoma in the left flank region. IMPRESSION: CT CHEST: 1. Scattered right-sided pulmonary nodules again demonstrated. There is perhaps new nodule adjacent to the dominant nodule in the right lower lobe. CT ABDOMEN and PELVIS: 1. Bilateral renal masses again demonstrated with atypical features. There may be perhaps very slight interval increase in size of the right renal lesion. Therefore, continued followup imaging evaluation is recommended. MRI would likely be of additional diagnostic utility. Dictated by: Dictated on workstation # [id number]
== END ==
LOC: RAD 16:18
PROVIDERS: ATTEND Family Medicine
DX: N28.89 Other specified disorders of kidney and ureter (principal); R91.8 Other nonspecific abnormal finding of lung field; Z85.820 Personal history of malignant melanoma of skin
CPT/HCPCS: 71270; 74178

== ENCOUNTER → 2017-07-25 | Outpatient (CLI) | payer OTHER ==
[~2017-07-25] MED LIST changes: -IOHEXOL 350 MG/ML 100 ML (OMNIPAQUE 350) VIAL IV ONE; +MIDAZOLAM 2 MG/2 ML (VERSED) VIAL ONE; -NS 250 ML (IVPB) BAG IV ONE; +fentaNYL INJECTION 100 MCG/2 ML AMP ONE
--- NOTE | 2017-07-25 15:27 | Diagnostic Imaging Report ---
INDICATION: Melanoma. Patient also has known renal masses bilaterally as well as pulmonary nodules. This study is performed for further evaluation. TECHNIQUE: Serum blood glucose level at the time of injection was 107 mg/dL. The patient was administered 12.1 mCi of F-18 FDG intravenously administered in the right antecubital location and whole body PET imaging was performed. In addition, noncontrast CT was performed for attenuation correction and anatomic correlation. COMPARISON: No prior PET/CT studies available for comparison. Comparison is made with the prior CT chest, abdomen and pelvis study from 07/10/2017. FINDINGS: There is symmetric activity throughout the brain. No abnormal hypermetabolism within the soft tissues of the neck are identified. Normal physiologic oropharyngeal activity is seen. No abnormal hypermetabolism within the chest is identified. Specifically, the nodular lesion in the right lower lobe does not appear to be hypermetabolic. No mediastinal or hilar hypermetabolism is seen. Imaging through the abdomen does show physiologic activity within the liver and spleen as well as genitourinary and GI tracts. The cystic lesion noted on CT in the right kidney does not appear hypermetabolic. The small complex lesion along the anterior lower pole left kidney also is not hypermetabolic. Physiologic activity in the ureters and bladder are seen. Imaging through the lower extremities is unremarkable. No abnormal hypermetabolism is identified. IMPRESSION: Unremarkable whole body PET/CT. No abnormal foci of hypermetabolism are identified. Specifically, the right lower lobe lung mass as well as bilateral renal lesions are not hypermetabolic. Dictated by: Dictated on workstation # [id number]
== END ==
LOC: RAD 09:30
PROVIDERS: ATTEND Internal Medicine Hematology & Oncology
DX: R91.8 Other nonspecific abnormal finding of lung field (principal); N28.89 Other specified disorders of kidney and ureter; Z85.820 Personal history of malignant melanoma of skin; Z98.890 Other specified postprocedural states

== ENCOUNTER 2017-09-07 14:51 | Outpatient (RCR) | payer OTHER ==
[~2017-09-07 14:51] MED LIST changes: -MIDAZOLAM 2 MG/2 ML (VERSED) VIAL ONE; -fentaNYL INJECTION 100 MCG/2 ML AMP ONE
== END 2017-10-18 | disposition home or self-care (01) ==
LOC: ONC 14:51
PROVIDERS: ATTEND Internal Medicine Hematology & Oncology
DX: R91.8 Other nonspecific abnormal finding of lung field (principal); Z85.820 Personal history of malignant melanoma of skin; N28.9 Disorder of kidney and ureter, unspecified; Z86.73 Personal history of transient ischemic attack (TIA), and cerebral infarction without residual deficits; Z88.1 Allergy status to other antibiotic agents; Z88.0 Allergy status to penicillin
CPT/HCPCS: 99213

== ENCOUNTER 2018-08-28 00:32 | Emergency (ER) | payer OTHER ==
[~2018-08-28 00:32] MED LIST changes: -LOSA50TA36 PO; +LOSA50TA63 PO
--- NOTE | 2018-08-28 01:06 | NUR ---
PT NAME CALLED AND NO ONE PRESENTED TO STAFF. REGISTRATION WAS NOT NOTIFIED OF PT LEAVING.
== END 2018-08-28 01:06 | disposition left against medical advice (07) ==
LOC: EDUNIT# 00:32 → ER 00:35
DX: R10.32 Left lower quadrant pain (principal)

== ENCOUNTER 2020-06-03 12:50 | Inpatient (IN) | payer OTHER ==
[~2020-06-03] VITALS: Ht 180 cm; Wt 82.0 kg
[2020-06-03] MEDS ORDERED: NITROGLYCERIN 0.4 MG SL TABS BTL 25'S SL PRN (13:00)
[2020-06-03] MEDS ORDERED: ASPIRIN 81 MG CHEW (CHILDREN'S ASA) PO ONE (13:00)
--- NOTE | 2020-06-03 13:06 | ED Chest Pain ---
General Chief Complaint: Chest Pain Stated Complaint: CP Nursing Triage Note: PT STATES CHEST PAIN THAT STARTED WHILE UNLOADING A TRUCK ABOUT AN HOUR AGO, UPPER CHEST AND RADIATING DOWN BOTH ARMS, EPISODES LIKE THIS IN THE PAST MONTH BUT NOT THIS BAD. Nursing Sepsis Screen: No Definite Risk Source: patient Exam Limitations: no limitations History of Present Illness Date Seen by Provider: Jun 03, 2020 Time Seen by Provider: 12:52 Initial Comments To ER with reports of chest pain while unloading a truck. He has never had pain this intense before but he has had pain occasionally over the course of the past month which seems to come about with activity. He follows with Dr. Lindsay and had a stress test about 2 years ago. He does not smoke nor does he have diabetes but he does have high cholesterol but he does have hyperlipidemia. His chest pain currently has improved and is rated at about a 3 out of 10. He took 2 ibuprofen before he came and he believes that it did help with the pain. Timing/Duration: changing over time Severity/Quality: moderate Location: central Radiation: no radiation ASA po WATER AEROBICS INSTRUCTOR: No NTG SL WATER AEROBICS INSTRUCTOR: No Associated Symptoms: shortness of breath Allergies and Home Medications Allergies Coded Allergies: Penicillins (Verified Allergy, Unknown, 04/03/16) atorvastatin (Verified Allergy, Unknown, 11/23/16) ceftriaxone (Verified Allergy, Unknown, 11/23/16) niacin (Verified Allergy, Unknown, 11/23/16) rosuvastatin (Verified Allergy, Unknown, 11/23/16) Home Medications Famotidine 20 Mg Tablet, 20 MG PO BID, (Reported) Losartan Potassium 50 Mg Tablet, 50 MG PO DAILY, (Reported) [employer] 3 Polyunsat Fatty Acids 1,000 Mg Cap, 2,000 MG PO DAILY, (Reported) take 2 (1,000mg) tabs Ubidecarenone 100 Mg Capsule, 100 MG PO DAILY, (Reported) Patient Home Medication List Home Medication List Reviewed: Yes Review of Systems Review of Systems Constitutional: see HPI EENTM: No Symptoms Reported Respiratory: No Symptoms Reported Cardiovascular: See HPI, Chest Pain Gastrointestinal: No Symptoms Reported Genitourinary: No Symptoms Reported Musculoskeletal: no symptoms reported Skin: no symptoms reported Psychiatric/Neurological: No Symptoms Reported Endocrine: No Symptoms Reported Hematologic/Lymphatic: No Symptoms Reported Past [id number]-[id number] Hx Patient Social History Alcohol Use: Denies Use Number of Drinks Today: AA Alcohol Beverage of Choice: Beer Smoking Status: Never a Smoker Recent Infectious Disease Expo: No Recent Hopitalizations: No Seasonal Allergies Seasonal Allergies: Yes (mild) Past Medical History Surgeries: Yes (skin lesion removed from back) Respiratory: No Cardiac: Yes Hypertension Neurological: Yes Stroke Reproductive Disorders: No Gastrointestinal: No Musculoskeletal: No Endocrine: No Cancer: Yes Melanoma Psychosocial: No Integumentary: No Blood Disorders: No Physical Exam Vital Signs Vital Signs - First Documented 06/03/20 12:51 Temp 36.1 Pulse 84 Resp 20 B/P (MAP) 147/105 (119) Pulse Ox 96 O2 Delivery Room Air Capillary Refill : Less Than 3 Seconds Height, Weight, BMI Height: 5'11.00" Weight: 185lbs. 0.0oz. 83.921011de; 25.00 BMI Method:Stated General Appearance: No Apparent Distress, WD/WN Neck: Full Range of Motion, Normal Inspection Respiratory: No Accessory Muscle Use, No Respiratory Distress Cardiovascular: Regular Rate, Rhythm Gastrointestinal: Normal Bowel Sounds, Non Tender, Soft Extremity: Normal Capillary Refill, Normal Inspection Neurologic/Psychiatric: Alert, Oriented x3 Skin: Normal Color, Warm/Dry Progress/Results/Core Measures Results/Orders Lab Results Laboratory Tests Test 06/03/20 13:00 Range/Units White Blood Count 4.4 4.3-11.0 10^3/uL Red Blood Count 4.43 4.30-5.52 10^6/uL Hemoglobin 14.3 13.3-17.7 g/dL Hematocrit 41 40-54 % Mean Corpuscular Volume 93 80-99 fL Mean Corpuscular Hemoglobin 32 25-34 pg Mean Corpuscular Hemoglobin Concent 35 32-36 g/dL Red Cell Distribution Width 12.7 10.0-14.5 % Platelet Count 221 130-400 10^3/uL Mean Platelet Volume 9.4 9.0-12.2 fL Immature Granulocyte % (Auto) 0 % Neutrophils (%) (Auto) 47 42-75 % Lymphocytes (%) (Auto) 42 12-44 % Monocytes (%) (Auto) 9 0-12 % Eosinophils (%) (Auto) 2 0-10 % Basophils (%) (Auto) 1 0-10 % Neutrophils # (Auto) 2.1 1.8-7.8 10^3/uL Lymphocytes # (Auto) 1.8 1.0-4.0 10^3/uL Monocytes # (Auto) 0.4 0.0-1.0 10^3/uL Eosinophils # (Auto) 0.1 0.0-0.3 10^3/uL Basophils # (Auto) 0.0 0.0-0.1 10^3/uL Immature Granulocyte # (Auto) 0.0 0.0-0.1 10^3/uL Prothrombin Time 13.3 12.2-14.7 SEC INR Comment 1.0 0.8-1.4 Activated Partial Thromboplast Time 26 24-35 SEC Sodium Level 139 135-145 MMOL/L Potassium Level 4.0 3.6-5.0 MMOL/L Chloride Level 105 98-107 MMOL/L Carbon Dioxide Level 21 21-32 MMOL/L Anion Gap 13 5-14 MMOL/L Blood Urea Nitrogen 14 7-18 MG/DL Creatinine 1.14 0.60-1.30 MG/DL Estimat Glomerular Filtration Rate > 60 BUN/Creatinine Ratio 12 Glucose Level 132 H 70-105 MG/DL Calcium Level 9.2 8.5-10.1 MG/DL Corrected Calcium 8.9 8.5-10.1 MG/DL Magnesium Level 2.0 1.6-2.4 MG/DL Total Bilirubin 0.5 0.1-1.0 MG/DL Aspartate Amino Transf (AST/SGOT) 29 5-34 U/L Alanine Aminotransferase (ALT/SGPT) 36 0-55 U/L Alkaline Phosphatase 48 40-136 U/L Myoglobin 51.7 10.0-92.0 NG/ML Troponin I 0.064 H <0.028 NG/ML B-Type Natriuretic Peptide 21.2 <100.0 PG/ML Total Protein 8.1 6.4-8.2 GM/DL Albumin 4.4 3.2-4.5 GM/DL My Orders Orders - SERGIO PRIETO APRN Cbc With Automated Diff (06/03/20 12:52) Magnesium (06/03/20 12:52) Chest 1 View, Ap/Pa Only (06/03/20 12:52) Ekg Tracing (06/03/20 12:52) Comprehensive Metabolic Panel (06/03/20 12:52) Myoglobin Serum (06/03/20 12:52) Protime With Inr (06/03/20 12:52) Partial Thromboplastin Time (06/03/20 12:52) O2 (06/03/20 12:52) Monitor-Rhythm Ecg Trace Only (06/03/20 12:52) Lipid Panel (06/04/20 06:00) Ed Iv/Invasive Line Start (06/03/20 12:52) BNP (06/03/20 12:52) Nitroglycerin 0.4 Mg Btl 25's (Nitrostat (06/03/20 13:00) Aspirin Chewable Tablet (Baby Aspirin Ch (06/03/20 13:00) Troponin I (06/03/20 12:52) Clopidogrel Tablet (Plavix Tablet) (06/03/20 14:00) Enoxaparin Injection (Lovenox Injection) (06/03/20 14:00) Medications Given in ED Current Medications Medications Dose Ordered Sig/Shobha Route Start Time Stop Time Status Last Admin Dose Admin Aspirin 324 mg ONCE ONCE PO 06/03/20 13:00 06/03/20 13:01 DC 06/03/20 13:08 324 MG Clopidogrel Bisulfate 300 mg ONCE ONCE PO 06/03/20 14:00 06/03/20 14:01 DC 06/03/20 14:10 300 MG Enoxaparin Sodium 80 mg ONCE ONCE SC 06/03/20 14:00 06/03/20 14:01 DC 06/03/20 14:10 80 MG Vital Signs/I&O 06/03/20 12:51 Temp 36.1 Pulse 84 Resp 20 B/P (MAP) 147/105 (119) Pulse Ox 96 O2 Delivery Room Air Blood Pressure Mean: 119 Diagnostic Imaging Diagonstic Imaging: Xray Comments NAME: VIVEK FIERRO [facility] REC#: [id number] PT STATUS: REG ER : 1960 PHYSICIAN: SERGIO PRIETO APRN ADMIT DATE: 06/03/20/ER Draft Date of Exam:06/03/20 CHEST 1 VIEW, AP/PA ONLY CLINICAL INDICATION: Patient with chest pain started while unloading a truck about an hour ago. Upper chest pain radiates down both arms. Patient had episodes like this in the past month but none as bad. EXAM: Portable chest x-ray, upright view. COMPARISON: Chest x-ray dated 11/05/2008. FINDINGS: Lungs/pleura: There is minimal bibasilar atelectasis; otherwise, the lungs are clear. There is no pneumothorax. There is no pleural effusion. Mediastinum: Unremarkable. Pulmonary vasculature: Unremarkable. Heart: Unremarkable. Bones/extrathoracic soft tissue: Unremarkable. IMPRESSION: There is no radiographic evidence of acute cardiopulmonary process. There is minimal bibasilar atelectasis. Dictated on workstation # [id number] Dict: 06/03/20 1331 Trans: 06/03/20 1334 [id number] Interpreted by: AMRITA DESIR MD Electronically signed by: Departure Communication (Admissions) [id number] with Dr. Lindsay and Dr. Rodriguez. Dr. Lindsay will take the admission, Dr. Rodriguez goes off call this afternoon Dr. Lin will be able to consults. Discussed anticoagulating him given the history of hemorrhagic stroke 3 years ago with no troubles since then.. The CT reported this looked to be hyp ertensive type bleed. No surgical intervention was done. Dr. Rodriguez agrees with anticoagulating with aspirin Plavix and Lovenox at this time. Impression Primary Impression: Chest pain Disposition: ADMITTED INPATIENT Condition: Stable Admissions Decision to Admit Reason: Admit from ER (General) Decision to Admit/Date: Jun 03, 2020 Time/Decision to Admit Time: 14:18 Departure-Patient Inst. Referrals: NO,LOCAL PHYSICIAN (PCP/Family) Primary Care Physician SERGIO PRIETO APRN Jun 03, 2020 13:06
[2020-06-03] MEDS ORDERED: ESCI10TA PO (13:10)
[2020-06-03] MEDS ORDERED: FAMO20TA3 PO (13:10)
[2020-06-03] MEDS ORDERED: EZET10TA49 PO (13:10)
[2020-06-03 13:12] LABS: BASOPHILS % (AUTO) 1 % (0-10); EOSINOPHILS # (AUTO) 0.1 10^3/uL (0.0-0.3); EOSINOPHILS % (AUTO) 2 % (0-10); HEMATOCRIT 41 % (40-54); HEMOGLOBIN 14.3 g/dL (13.3-17.7); LYMPHOCYTES # (AUTO) 1.8 10^3/uL (1.0-4.0); LYMPHOCYTES % (AUTO) 42 % (12-44); MEAN CORPUSCULAR HEMOGLOBIN 32 pg (25-34); MEAN CORPUSCULAR HGB CONC 35 g/dL (32-36); MEAN CORPUSCULAR VOLUME 93 fL (80-99); MEAN PLATELET VOLUME 9.4 fL (9.0-12.2); MONOCYTES # (AUTO) 0.4 10^3/uL (0.0-1.0); MONOCYTES % (AUTO) 9 % (0-12); NEUTROPHILS # (AUTO) 2.1 10^3/uL (1.8-7.8); NEUTROPHILS % (AUTO) 47 % (42-75); PLATELET COUNT 221 10^3/uL (130-400); WHITE BLOOD COUNT 4.4 10^3/uL (4.3-11.0)
[2020-06-03 13:27] LABS: ALBUMIN 4.4 GM/DL (3.2-4.5)
[2020-06-03 13:28] LABS: CHLORIDE 105 MMOL/L (98-107); PROTHROMBIN TIME PATIENT 13.3 SEC (12.2-14.7); SODIUM 139 MMOL/L (135-145)
[2020-06-03 13:29] LABS: CALCIUM 9.2 MG/DL (8.5-10.1)
[2020-06-03 13:30] LABS: GLUCOSE 132 MG/DL (70-105); TOTAL PROTEIN 8.1 GM/DL (6.4-8.2)
[2020-06-03 13:31] LABS: CARBON DIOXIDE 21 MMOL/L (21-32)
[2020-06-03 13:32] LABS: BILIRUBIN,TOTAL 0.5 MG/DL (0.1-1.0)
[2020-06-03 13:33] LABS: ALKALINE PHOSPHATASE 48 U/L (40-136)
[2020-06-03 13:34] LABS: CREATININE SERUM 1.14 MG/DL (0.60-1.30); GFR ESTIMATED > 60
[2020-06-03 13:35] LABS: BUN/CREATININE RATIO 12
--- NOTE | 2020-06-03 13:35 | Diagnostic Imaging Report ---
CLINICAL INDICATION: Patient with chest pain started while unloading a truck about an hour ago. Upper chest pain radiates down both arms. Patient had episodes like this in the past month but none as bad. EXAM: Portable chest x-ray, upright view. COMPARISON: Chest x-ray dated 11/05/2008. FINDINGS: Lungs/pleura: There is minimal bibasilar atelectasis; otherwise, the lungs are clear. There is no pneumothorax. There is no pleural effusion. Mediastinum: Unremarkable. Pulmonary vasculature: Unremarkable. Heart: Unremarkable. Bones/extrathoracic soft tissue: Unremarkable. IMPRESSION: There is no radiographic evidence of acute cardiopulmonary process. There is minimal bibasilar atelectasis. Dictated by: Dictated on workstation # [id number]
[2020-06-03 13:36] LABS: ALANINE AMINOTRANSFERASE 36 U/L (0-55)
[2020-06-03] MEDS ORDERED: CLOPIDOGREL 300 MG (PLAVIX) TABLET PO ONE (14:00)
[2020-06-03] MEDS ORDERED: ENOXAPARIN 80 MG/0.8 ML (LOVENOX) SYR SC ONE (14:00)
[2020-06-03] MEDS ORDERED: CATHETER FLUSH 10 ML SYR IV PRN (15:30)
[2020-06-03] MEDS: LACTATED RINGERS 1,000 ML IV SCH ×2 (15:39→20:12)
[2020-06-03] MEDS ORDERED: LOSA100T57 PO (15:51)
[2020-06-03] MEDS ORDERED: ERGO50006 PO (15:51)
[2020-06-03] MEDS ORDERED: ESCI-2 PO (15:51)
[2020-06-03] MEDS ORDERED: IBUP-2185 PO (15:51)
[2020-06-03] MEDS ORDERED: CHOL100048 PO (15:51)
[2020-06-03] MEDS ORDERED: ACET-2267 PO (15:51)
--- NOTE | 2020-06-03 15:53 | Cardiology History & Physical ---
HPI-Cardiology Cardiology H&P Date of Admission Primary Care Physician Amarilis Rodriguez MD Attending Physician Ally Ireen MD [facility] Consulting Physician [id number] Hx Patient Social History Smoking Status: Never a Smoker Alcohol Use?: Yes Pt feels they are or have been: No Past Medical History PMH As described under Assessment. Allergies and Home Medications Allergies Coded Allergies: Penicillins (Verified Allergy, Unknown, 04/03/16) atorvastatin (Verified Allergy, Unknown, 11/23/16) ceftriaxone (Verified Allergy, Unknown, 11/23/16) niacin (Verified Allergy, Unknown, 11/23/16) rosuvastatin (Verified Allergy, Unknown, 11/23/16) Home Medications Acetaminophen 500 Mg Tablet, 1,000 MG PO Q8H PRN for PAIN-MILD (1-4), (Reported) Cholecalciferol (Vitamin D3) 25 Mcg Capsule, 25 MCG PO DAILY, (Reported) Ergocalciferol (Vitamin D2) 1,250 Mcg Capsule, 1,250 MCG PO WED, (Reported) Escitalopram Oxalate 10 Mg Tablet, 10 MG PO DAILY, (Reported) Famotidine 20 Mg Tablet, 20 MG PO BID PRN for HEARTBURN, (Reported) Ibuprofen 200 Mg Capsule, 400 MG PO Q8H PRN for PAIN-MILD (1-4), (Reported) Losartan Potassium 100 Mg Tablet, 100 MG PO DAILY, (Reported) Ubidecarenone 100 Mg Capsule, 100 MG PO DAILY, (Reported) Physical Exam-Cardiology Physical Exam Vital Signs/I&O 06/04/20 06/04/20 06/04/20 06/04/20 06:39 08:00 08:09 13:42 Temp 37.0 Pulse 44 49 O2 Delivery Room Air 06/04/20 06/04/20 06/04/20 06/04/20 13:45 14:00 14:15 14:30 Pulse 56 49 61 67 Resp 20 9 25 28 B/P (MAP) 166/79 (108) 156/75 (102) 145/72 (96) 144/71 (95) O2 Delivery Room Air Room Air Room Air Room Air 06/04/20 06/04/20 06/04/20 06/04/20 14:45 15:00 15:15 16:00 Pulse 53 57 57 53 Resp 19 15 11 14 B/P (MAP) 157/76 (103) 141/67 (91) 152/78 (102) 158/106 (123) Pulse Ox 95 96 O2 Delivery Room Air Room Air Room Air Room Air 06/04/20 00:00 Intake Total 1200 ml Output Total 120 ml Balance 1080 ml Capillary Refill : Less Than 3 Seconds Data Review Labs Laboratory Tests 06/04/20 03:30: Triglycerides Level 1021H, Cholesterol Level 275H, LDL Cholesterol Direct 124, VLDL Cholesterol 204H, HDL Cholesterol 26L Radiology NAME: VIVEK FIERRO [facility] REC#: [id number] PT STATUS: REG ER : 1960 PHYSICIAN: SERGIO PRIETO APRN ADMIT DATE: 06/03/20/ER Draft Date of Exam:06/03/20 CHEST 1 VIEW, AP/PA ONLY CLINICAL INDICATION: Patient with chest pain started while unloading a truck about an hour ago. Upper chest pain radiates down both arms. Patient had episodes like this in the past month but none as bad. EXAM: Portable chest x-ray, upright view. COMPARISON: Chest x-ray dated 11/05/2008. FINDINGS: Lungs/pleura: There is minimal bibasilar atelectasis; otherwise, the lungs are clear. There is no pneumothorax. There is no pleural effusion. Mediastinum: Unremarkable. Pulmonary vasculature: Unremarkable. Heart: Unremarkable. Bones/extrathoracic soft tissue: Unremarkable. IMPRESSION: There is no radiographic evidence of acute cardiopulmonary process. There is minimal bibasilar atelectasis. Dictated on workstation # [id number] Dict: 06/03/20 1331 Trans: 06/03/20 1334 [id number] Interpreted by: AMRITA DESIR MD Electronically signed by: A/P-Cardiology Assessment/Admission Diagnosis Hypertriglyceridemia Intolerance to statin d/t muscle aches MPI of June 2016 showed no evidence of ischemia or infarction. LVEF 64%. Echocardiogram of June 2016 showed LVEF 65%. Mild aortic valve sclerosis. No significant valvular regurg Ambulatory heart monitor from June 2016 (ZIO patch) showed intermittent BBB, isolated SVEs were rare, isolated VEs were rare Near-syncope - no further c/o Chronic joint and muscle pains Right occipital head bleed in Mar 2016, spontaneous, without any remaining sequelae (was hsp to Viramontes, [place]) MRI of May 2016 showed right parietal hemorrhage evolution is seen with signal intensity reflecting remaining blood products are noted. The area is now smaller compared to 04-03-16 - following Dr. Rodriguez CT of the chest from May 2016 showed indeterminate 1.3 cm superior segment RLLL nodule and 4 mm nodules along the major and minor fissures on the right side. Groundglass opacity. Left kidney mass of 1.5 cm. Cystic 3.6 cm lesion lower pole of the right kidney - following with Dr. Rodriguez R pulm nodules and a small hypodense lesion in L kidney, found on w/u at [place] in Mar 2016, followed by Dr. Rodriguez Incomp RBBB, apparently chronic Fam h/o early CAD (mother had CABG in her mid 50s, father had heart dz in his early 40s) Hypertension Clinical Quality Measures AMI/AHF: ASA po Prior to arrival: JEANETH Gavin Jun 03, 2020 15:53
[2020-06-03 16:00] VITALS: BP 139/90
--- NOTE | 2020-06-03 18:42 | Cardiology History & Physical ---
HPI-Cardiology Cardiology H&P Date of Admission 06/03/20 Primary Care Physician Amarilis Rodriguez MD Attending Physician Ally Irene MD, MA FACP [facility] Consulting Physician [facility] CC: Chest discomfort HPI 60 yo man who has been having intermittent upper chest and bilateral shoulder discomfort for a month. It occurs 2-3 times a week and is mild. Was moderate today and came in to the ER. Discomfort is a feeling of burning. It lasts up to 15 min. Ibuprofen may help, he says. No relation to exertion. No shortness of breath or palp or syncope. No leg swelling. No n/v/d Review of Systems-Cardiology Review of Systems Constitutional: No lightheadedness, No malaise, No tiredness Eyes: No vision change Ears/Nose/Throat: No ear discharge, No nasal drainage, No recent hearing loss Respiratory: As described under HPI Cardiovascular: As described under HPI Gastrointestinal: As described under HPI Genitourinary: No dysuria, No hematuria, No urine frequency changes Musculoskeletal: No back pain, No joint pain Skin: No rash, No ulcerations Psychiatric/Neurological: No seizure, No focal weakness, No syncope Hematologic: No bleeding abnormalities ALE-Cylkqd-Blvjas Hx Patient Social History Smoking Status: Never a Smoker Alcohol Use?: Yes Pt feels they are or have been: No Past Medical History PMH As described under Assessment. Family Medical History Family Medical History: He does not report fam h/o early CAD Allergies and Home Medications Allergies Coded Allergies: Penicillins (Verified Allergy, Unknown, 04/03/16) atorvastatin (Verified Allergy, Unknown, 11/23/16) ceftriaxone (Verified Allergy, Unknown, 11/23/16) niacin (Verified Allergy, Unknown, 11/23/16) rosuvastatin (Verified Allergy, Unknown, 11/23/16) Home Medications Acetaminophen 500 Mg Tablet, 1,000 MG PO Q8H PRN for PAIN-MILD (1-4), (Reported) Cholecalciferol (Vitamin D3) 25 Mcg Capsule, 25 MCG PO DAILY, (Reported) Ergocalciferol (Vitamin D2) 1,250 Mcg Capsule, 1,250 MCG PO WED, (Reported) Escitalopram Oxalate 10 Mg Tablet, 10 MG PO DAILY, (Reported) Famotidine 20 Mg Tablet, 20 MG PO BID PRN for HEARTBURN, (Reported) Ibuprofen 200 Mg Capsule, 400 MG PO Q8H PRN for PAIN-MILD (1-4), (Reported) Losartan Potassium 100 Mg Tablet, 100 MG PO DAILY, (Reported) Ubidecarenone 100 Mg Capsule, 100 MG PO DAILY, (Reported) Patient Home Medication List Home Medication List Reviewed: Yes Physical Exam-Cardiology Physical Exam Vital Signs/I&O 06/03/20 06/03/20 06/03/20 06/03/20 12:51 13:00 15:07 15:19 Temp 36.1 36.2 Pulse 84 69 65 Resp 20 20 B/P (MAP) 147/105 (119) 125/77 (119) Pulse Ox 96 97 O2 Delivery Room Air Room Air Room Air 06/03/20 16:00 Temp 36.4 Pulse 68 Resp 18 B/P (MAP) 139/90 (106) Pulse Ox 99 O2 Delivery Room Air Capillary Refill : Less Than 3 Seconds Constitutional: AAO x 3, well-developed, well-nourished HEENT: EOMI, hearing is well preserved; No xanthelasmas are seen Neck: carotid pulses are 2 + bilaterally, with good upstrokes Respiratory: No accessory muscle use; other (good, bilateral air entry) Cardiovascular: regular rate-rhythm, S1 and S2, systolic murmur (soft AHSAN at card base) Gastrointestinal: No tender; soft; No guarding, No rebound; audible bowel sounds Extremities: No clubbing, No cyanosis, No significant edema Neurologic/Psychiatric: oriented x 3, other (moves all limbs equally) Skin: No rash on exposed areas, No ulcerations on exposed areas Data Review Labs Laboratory Tests 06/03/20 13:00: White Blood Count 4.4, Red Blood Count 4.43, Hemoglobin 14.3, Hematocrit 41, Mean Corpuscular Volume 93, Mean Corpuscular Hemoglobin 32, Mean Corpuscular Hemoglobin Concent 35, Red Cell Distribution Width 12.7, Platelet Count 221, Mean Platelet Volume 9.4, Immature Granulocyte % (Auto) 0, Neutrophils (%) (Auto) 47, Lymphocytes (%) (Auto) 42, Monocytes (%) (Auto) 9, Eosinophils (%) (Auto) 2, Basophils (%) (Auto) 1, Neutrophils # (Auto) 2.1, Lymphocytes # (Auto) 1.8, Monocytes # (Auto) 0.4, Eosinophils # (Auto) 0.1, Basophils # (Auto) 0.0, Immature Granulocyte # (Auto) 0.0, Prothrombin Time 13.3, INR Comment 1.0, Activated Partial Thromboplast Time 26, Sodium Level 139, Potassium Level 4.0, Chloride Level 105, Carbon Dioxide Level 21, Anion Gap 13, Blood Urea Nitrogen 14, Creatinine 1.14, Estimat Glomerular Filtration Rate > 60, BUN/Creatinine Ratio 12, Glucose Level 132H, Calcium Level 9.2, Corrected Calcium 8.9, Magnesium Level 2.0, Total Bilirubin 0.5, Aspartate Amino Transf (AST/SGOT) 29, Alanine Aminotransferase (ALT/SGPT) 36, Alkaline Phosphatase 48, Myoglobin 51.7, Troponin I 0.064H, B-Type Natriuretic Peptide 21.2, Total Protein 8.1, Albumin 4.4 06/03/20 15:50: Troponin I 0.067H Laboratory Tests 06/03/20 13:00 A/P-Cardiology Assessment/Admission Diagnosis New onset of symptoms suggestive of angina pectoris Cardiac risk factros - Fam h/o early CAD (mother had CABG in her mid 50s, father had heart dz in his early 40s) - Hypertension - Hyperlipidemia, but has intolerance to statin d/t muscle aches Echocardiogram of June 2016 showed LVEF 65%. Mild aortic valve sclerosis. No significant valvular regurg H/o Near-syncope - no further c/o - Ambulatory heart monitor from June 2016 (ZIO patch) showed intermittent BBB, isolated SVEs were rare, isolated VEs were rare H/o intracranial bleed in Mar 2016 - spontaneous, without any remaining sequelae (was hsp to [facility] Viramontes) - MRI of May 2016: right parietal hemorrhage evolution is seen with signal intensity reflecting remaining blood products are noted. Intracranial bleed history is followed by Dr. Rodriguez CT of the chest from May 2016 showed indeterminate 1.3 cm superior segment RLL nodule and 4 mm nodules along the major and minor fissures on the right side. Groundglass opacity. Left kidney mass of 1.5 cm. Cystic 3.6 cm lesion lower pole of the right kidney - following with Dr. Rodriguez R pulm nodules and a small hypodense lesion in L kidney, found on w/u at [place] in Mar 2016, followed by Dr. Rodriguez Incomp RBBB and LAFB, chronic Admission Status: Observation Discussion and Recomendations * Angina / acute cor syndrome is suspected. Treatment is with antiplatelet agents * DVT prophylaxis with Lovenox * I personally called Dr Rodriguez, his pcp, and sought her advice regarding the use of antiplatelet agents and anticoag. She felt that these would be safe to use, especially given his presentation with what appears to be ACS * Add bb if tolerated by bp * Echo * Card cath for cor eval. I had a long and detailed discussion with him and his regarding the rationale, risks, benefits, potential complications, and alternatives of card cath and possible PCI, including his [id number] risk of intracranial bleed. He understands and wishes to proceed. Clinical Quality Measures AMI/AHF: ASA po Prior to arrival: ALLY Chester MD FACP FAC CCDS Jun 03, 2020 18:42
[2020-06-03 19:04] VITALS: BP 136/92
--- NOTE | 2020-06-03 19:45 | Consultation ---
History of Present Illness History of Present Illness Patient Consulted On(saida/time) 06/03/20 19:45 Date Seen by Provider: Jun 03, 2020 Time Seen by Provider: 19:40 Reason for Visit: CHEST PAIN History of Present Illness PT IS A 60 Y/O MALE WHO IS KNOWN TO ME FROM CLINIC. HE PRESENTED TO THE EMERGENCY DEPARTMENT WITH COMPLAINT OF SIGNIFICANT CHEST PAIN STARTING THIS AFTERNOON WHEN HE WAS AT WORK. HE REPORTS THAT HE HAS BEEN EXPERIENCING SOME INTERMITTENT PAIN OFF AND ON FOR SEVERAL WEEKS, BUT TODAY IT CULMINATED IN A BURNING PAIN ACROSS HIS CHEST AND INTO HIS ARMS WITH SOME PRESSURE ASSOCIATED WITH THE PAIN. RAJNI WAS EVALUATED IN THE EMERGENCY DEPARTMENT, FOUND TO HAVE AN ELEVATED TROPONIN AND WAS ADMITTED FOR ACUTE CORONARY SYNDROME. Allergies and Home Medications Allergies Coded Allergies: Penicillins (Verified Allergy, Unknown, 04/03/16) atorvastatin (Verified Allergy, Unknown, 11/23/16) ceftriaxone (Verified Allergy, Unknown, 11/23/16) niacin (Verified Allergy, Unknown, 11/23/16) rosuvastatin (Verified Allergy, Unknown, 11/23/16) Home Medications Acetaminophen 500 Mg Tablet, 1,000 MG PO Q8H PRN for PAIN-MILD (1-4), (Reported) Cholecalciferol (Vitamin D3) 25 Mcg Capsule, 25 MCG PO DAILY, (Reported) Ergocalciferol (Vitamin D2) 1,250 Mcg Capsule, 1,250 MCG PO WED, (Reported) Escitalopram Oxalate 10 Mg Tablet, 10 MG PO DAILY, (Reported) Famotidine 20 Mg Tablet, 20 MG PO BID PRN for HEARTBURN, (Reported) Ibuprofen 200 Mg Capsule, 400 MG PO Q8H PRN for PAIN-MILD (1-4), (Reported) Losartan Potassium 100 Mg Tablet, 100 MG PO DAILY, (Reported) Ubidecarenone 100 Mg Capsule, 100 MG PO DAILY, (Reported) Patient Home Medication List Home Medication List Reviewed: Yes Past Acjqzlu-Kqutbw-Oslqxd Hx Past Med/Social Hx: Reviewed Nursing Past Med/Soc Hx, Reviewed and Corrections made Patient Social History Alcohol Use: Denies Use Number of Drinks Today: AA Alcohol Beverage of Choice: Beer Smoking Status: Never a Smoker 2nd Hand Smoke Exposure: No Recent Infectious Disease Expo: No Recent Hopitalizations: No Physical Abuse: No Sexual Abuse: No Mistreated: No Fear: No Have you traveled recently?: No Alcohol Use?: Yes Seasonal Allergies Seasonal Allergies: Yes (mild) Past Medical History Surgeries: Yes (LARGE EXCISION OF MELANOMA FROM BACK) Respiratory: No Cardiac: Yes High Cholesterol, Hypertension Neurological: Yes (INTRACRANIAL HEMORRHAGE) Stroke Reproductive Disorders: No Sexually Transmitted Disease: No HIV/AIDS: No Genitourinary: Yes (THICKENED BLADDER WALL) Gastrointestinal: No Musculoskeletal: No Endocrine: No Cancer: Yes Melanoma Did You Recieve Any Treatments: Yes What Type of Treatment Did You: Surgical Intervention Psychosocial: No Integumentary: No Blood Disorders: No Family Medical History Reviewed and Corrections made Heart Disease, Hypertension, Stroke Review of Systems Review of Systems General: No Chills, No Fatigue, No Malaise HEENT: No Visual Changes, No Dysphasia Pulmonary: No Dyspnea, No Cough Cardiovascular: Chest Pain; No: Palpitations, Paroxysmal Noc. Dyspnea Gastrointestinal: No: Abdominal Pain Genitourinary: No Frequency Musculoskeletal: No: back pain Neurological: No: Weakness, Confusion All Other Systems Reviewed All Other Systems Reviewed: Yes Physical Exam Vital Signs Vital Signs - First Documented 06/03/20 12:51 Temp 36.1 Pulse 84 Resp 20 B/P (MAP) 147/105 (119) Pulse Ox 96 O2 Delivery Room Air Capillary Refill : Less Than 3 Seconds Height, Weight, BMI Height: 5'11.00" Weight: 185lbs. 0.0oz. 83.997398gp; 25.30 BMI Method:Stated General Appearance: No Apparent Distress, WD/WN Eyes: Bilateral Eye Normal Inspection, Bilateral Eye PERRL, Bilateral Eye EOMI HEENT: PERRL/EOMI, TMs Normal, Normal ENT Inspection, Pharynx Normal Neck: Full Range of Motion, Normal Inspection, Non Tender, Supple Respiratory: Chest Non Tender, Lungs Clear, Normal Breath Sounds, No Accessory Muscle Use, No Respiratory Distress Cardiovascular: Regular Rate, Rhythm, No Edema, Normal Peripheral Pulses Gastrointestinal: Normal Bowel Sounds, No Organomegaly, No Pulsatile Mass, Non Tender, Soft Rectal: Deferred Back: Normal Inspection, No Vertebral Tenderness Extremity: Normal Capillary Refill, Normal Inspection, Normal Range of Motion, Non Tender, No Calf Tenderness, No Pedal Edema Neurologic/Psychiatric: Alert, Oriented x3, No Motor/Sensory Deficits, Normal 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 GOSS - PLANNING ON HEART CATHETERIZATION ON 06/04/2020. - PLAVIX AND ASA STARTED - DISCUSSED WITH THE ER PROVIDER (SERGIO PRIETO, [employer] ANALYST-C), DR. GOSS ABOUT USE OF PLAVIX AND ASA AND LOVENOX AT TREATMENT DOSE DESPITE PATIENT HAVING HAD PREVIOUS INTRACRANIAL HEMORRHAGE. HIS RISK OF BLEED VERSUS HIS CURRENT AND FUTURE RISK OF CORONARY EVENT HAS TO BE WEIGHED. I HAVE DISCUSSED THIS WITH THE PATIENT AND HE IS IN AGREEMENT WITH OUR PLAN FOR ANTIPLATELET THERAPY AND CARDIAC CATH. HYPERTENSION - RESUME ANTI-HYPERTENSIVE THERAPY - THE PT IS ON METOPROLOL CURRENTLY. HYPERLIPIDEMIA - PT STOPPED HIS STATIN THERAPY SINCE IT WAS NOT WORKING - HE REPORTS THAT HE HAD PLANS TO START ON A DIFFERENT THERAPY OUTPATIENT - POSSIBLY PRALUENT. DEPRESSION - RESTART SSRI. HISTORY OF MELANOMA HISTORY OF INTRACRANIAL BLEED GI PROPHYLAXIS WITH PPI DVT PROPHYLAXIS WITH LOVENOX. Admission Status: Inpatient Order (span 2 midnights) Assessment and Plan ACUTE CORONARY SYNDROME CHEST PAIN HYPERTENSION HYPERLIPIDEMIA DEPRESSION HISTORY OF MELANOMA HISTORY OF INTRACRANIAL BLEED Clinical Quality Measures AMI/AHF: ASA po Prior to arrival: KORY Ferguson MD Jun 03, 2020 19:45
[2020-06-03] MEDS ORDERED: FAMOTIDINE 20 MG (PEPCID) TABLET PO PRN (20:30)
[2020-06-04] VITALS (17 sets, daily range): BP systolic 121–168; BP diastolic 67–107
[2020-06-04] MEDS ORDERED: ENOXAPARIN 80 MG/0.8 ML (LOVENOX) SYR SC SCH ×2 (04:00→09:00)
[2020-06-04 04:18] LABS: TRIGLYCERIDES 1021 MG/DL (<150)
[2020-06-04 04:23] LABS: CHOLESTEROL 275 MG/DL (< 200); HDL CHOLESTEROL 26 MG/DL (40-60)
[2020-06-04] MEDS: LACTATED RINGERS 1,000 ML IV SCH ×3 (04:59→23:44)
[2020-06-04] MEDS ORDERED: LIDOCAINE 1% INJ 20 ML 20 ML VIAL ONE (07:15)
[2020-06-04] MEDS ORDERED: HEParin (CATH LAB) 2,000 ML IV ONE (07:15)
[2020-06-04] MEDS ORDERED: NS IV 1000 ML 1,000 ML ONE (07:15)
[2020-06-04] MEDS ORDERED: fentaNYL INJ 100 MCG/2 ML AMP ONE ×2 (07:52→15:33)
[2020-06-04] MEDS ORDERED: MIDAZOLAM 5 MG/5 ML (VERSED) VIAL ONE (07:52)
[2020-06-04] MEDS: LOSARTAN 50 MG (COZAAR) TAB PO SCH (08:38)
[2020-06-04] MEDS: CLOPIDOGREL 75 MG (PLAVIX) TABLET PO SCH (08:39)
[2020-06-04] MEDS: ENOXAPARIN 40 MG/0.4 ML (LOVENOX) SYR SC SCH (08:39)
[2020-06-04] MEDS: ASPIRIN 81 MG CHEW (CHILDREN'S ASA) PO SCH (08:39)
--- NOTE | 2020-06-04 08:45 | Progress Note ---
Subjective Date Seen by a Provider: Jun 04, 2020 Time Seen by a Provider: 08:42 Subjective/Events-last exam Fwup acute chest pain with elevated troponin, HTN, bradycardia, mixed h yperlipidemia, history of cranial hemorrhage in remote past. Sitting up in bed with no complaints. No CP since admission. Objective Exam Vital Signs Date Time Temp Pulse Resp B/P (MAP) Pulse Ox O2 Delivery O2 Flow Rate FiO2 06/04/20 08:09 37.0 06/04/20 08:00 Room Air 06/04/20 06:39 44 06/04/20 04:50 36.3 52 18 145/84 (104) Room Air 06/04/20 01:00 60 06/04/20 00:30 36.2 56 20 121/75 (90) Room Air 06/03/20 20:00 Room Air 06/03/20 19:04 37.0 62 19 136/92 (107) Room Air 06/03/20 19:00 64 06/03/20 16:00 36.4 68 18 139/90 (106) 99 Room Air 06/03/20 15:19 65 06/03/20 15:07 36.2 69 20 125/77 (119) 97 Room Air 06/03/20 13:00 Room Air 06/03/20 12:51 36.1 84 20 147/105 (119) 96 Room Air I & O 06/04/20 07:00 Intake Total 2550 ml Output Total 445 ml Balance 2105 ml Capillary Refill : Less Than 3 Seconds General Appearance: No Apparent Distress Respiratory: Lungs Clear Cardiovascular: Regular Rate, Rhythm Gastrointestinal: normal bowel sounds, non tender, soft Extremity: No Calf Tenderness, No Pedal Edema Neurologic/Psychiatric: Alert, Oriented x3 Results Lab Laboratory Tests 06/03/20 13:00: White Blood Count 4.4, Red Blood Count 4.43, Hemoglobin 14.3, Hematocrit 41, Mean Corpuscular Volume 93, Mean Corpuscular Hemoglobin 32, Mean Corpuscular Hemoglobin Concent 35, Red Cell Distribution Width 12.7, Platelet Count 221, Mean Platelet Volume 9.4, Immature Granulocyte % (Auto) 0, Neutrophils (%) (Auto) 47, Lymphocytes (%) (Auto) 42, Monocytes (%) (Auto) 9, Eosinophils (%) (Auto) 2, Basophils (%) (Auto) 1, Neutrophils # (Auto) 2.1, Lymphocytes # (Auto) 1.8, Monocytes # (Auto) 0.4, Eosinophils # (Auto) 0.1, Basophils # (Auto) 0.0, Immature Granulocyte # (Auto) 0.0, Prothrombin Time 13.3, INR Comment 1.0, Activated Partial Thromboplast Time 26, Sodium Level 139, Potassium Level 4.0, Chloride Level 105, Carbon Dioxide Level 21, Anion Gap 13, Blood Urea Nitrogen 14, Creatinine 1.14, Estimat Glomerular Filtration Rate > 60, BUN/Creatinine Ratio 12, Glucose Level 132H, Calcium Level 9.2, Corrected Calcium 8.9, Magnesium Level 2.0, Total Bilirubin 0.5, Aspartate Amino Transf (AST/SGOT) 29, Alanine Aminotransferase (ALT/SGPT) 36, Alkaline Phosphatase 48, Myoglobin 51.7, Troponin I 0.064H, B-Type Natriuretic Peptide 21.2, Total Protein 8.1, Albumin 4.4 06/03/20 15:50: Troponin I 0.067H 06/04/20 03:30: Triglycerides Level 1021H, Cholesterol Level 275H, LDL Cholesterol Direct 124, VLDL Cholesterol 204H, HDL Cholesterol 26L Assessment/Plan Assessment/Plan Assess & Plan/Chief Complaint 1. Chest Pain with elevated troponin--cardiac cath today 2. Hypertension with Bradycardia--on metoprolol 3. Past History of Cranial Hemorrhage--stable, patient states was never conclusive reason for brain bleed Clinical Quality Measures AMI/AHF: ASA po Prior to arrival: ELIZABETH Pena DO Jun 04, 2020 08:45
[2020-06-04] MEDS ORDERED: NON-FORMULARY MEDICATION 1 EA EA (Escitalopram Oxalate 10 MG) PO SCH (09:00)
[2020-06-04] MEDS ORDERED: ENOXAPARIN 40 MG/0.4 ML (LOVENOX) SYR SC SCH (09:00)
[2020-06-04] MEDS: NS IV 1000 ML 1,000 ML IV SCH ×4 (12:40→23:45)
[2020-06-04] MEDS ORDERED: EPTIFIBATIDE BOLUS 20 ML IV ONE (12:42)
[2020-06-04] MEDS ORDERED: HEParin 1000 UNIT/ML (10ML VIAL) FOR BOLUS ONE (12:42)
[2020-06-04] MEDS ORDERED: NITRO DRIP 25000 MCG/D5W 250 ML IV ONE (12:43)
[2020-06-04] MEDS ORDERED: CLOPIDOGREL 300 MG (PLAVIX) TABLET PO ONE (13:10)
--- NOTE | 2020-06-04 13:23 | Progress Note - Cardiology ---
Cardiology SOAP Progress Note Subjective: No recurrence of cp No palp or syncope No shortness of breath at rest No n/v/d Some gen malaise Objective: I&O/Vital Signs 06/04/20 06/04/20 06/04/20 06/04/20 04:50 06:39 08:00 08:09 Temp 36.3 37.0 Pulse 52 44 Resp 18 B/P (MAP) 145/84 (104) O2 Delivery Room Air Room Air 06/03/20 23:59 Intake Total 1200 ml Output Total 120 ml Balance 1080 ml Weight (Pounds): 185 Weight (Ounces): 0.0 Weight (Calculated Kilograms): 83.158770 Constitutional: AAO x 3, well-developed, well-nourished Respiratory: No accessory muscle use; other (good, bilateral air entry) Cardiovascular: regular rate-rhythm, S1 and S2, systolic murmur (soft AHSAN at card base) Gastrointestional: No tender; soft; No guarding, No rebound; audible bowel sounds Extremities: No clubbing, No cyanosis, No significant edema Neurologic/Psychiatric: oriented x 3, other (moves all limbs equally) Skin: No rash on exposed areas, No ulcerations on exposed areas Results/Procedures: Labs Laboratory Tests 06/03/20 15:50: Troponin I 0.067H 06/04/20 03:30: Triglycerides Level 1021H, Cholesterol Level 275H, LDL Cholesterol Direct 124, VLDL Cholesterol 204H, HDL Cholesterol 26L A/P: Assessment: CAD - Ac NSTEMI / unstable angina on 06/03/20 - Cath of 06/04/20: 95% mid RCA stented with Kaylan 3.0 x 38 (post-dilated with 3.5 mm balloon), 40% bifurcation LAD, mild plaques LCX, RCA dominant, LVEF 60%, LVEDP 20 mmHg Cardiac risk factors - Fam h/o early CAD (mother had CABG in her mid 50s, father had heart dz in his early 40s) - Hypertension - Hyperlipidemia, but has intolerance to statin d/t muscle aches Echocardiogram of June 2016 showed LVEF 65%. Mild aortic valve sclerosis. No significant valvular regurg H/o Near-syncope - no further c/o - Ambulatory heart monitor from June 2016 (ZIO patch) showed intermittent BBB, isolated SVEs were rare, isolated VEs were rare H/o intracranial bleed in Mar 2016 - spontaneous, without any remaining sequelae (was hsp to Ter[facility] Viramontes) - MRI of May 2016: right parietal hemorrhage evolution is seen with signal intensity reflecting remaining blood products are noted. Intracranial bleed history is followed by Dr. Rodriguez CT of the chest from May 2016 showed indeterminate 1.3 cm superior segment RLL nodule and 4 mm nodules along the major and minor fissures on the right side. Groundglass opacity. Left kidney mass of 1.5 cm. Cystic 3.6 cm lesion lower pole of the right kidney - following with Dr. Rodriguez R pulm nodules and a small hypodense lesion in L kidney, found on w/u at [place] in Mar 2016, followed by Dr. Rodriguez Incomp RBBB and LAFB, chronic Plan: * DAPT * Cannot tolerate statin * Continue beta-bigg * DVT prophylaxis with Lovenox * I personally called Dr Rodriguez on , his pcp, and sought her advice regarding the use of antiplatelet agents and anticoag. She felt that these would be safe to use, especially given his presentation ACS Clinical Quality Measures AMI/AHF: ASA po Prior to arrival: GERMÁN Chester MD FACP FAC CCDS Jun 04, 2020 13:23
[2020-06-04] MEDS ORDERED: PATIENT MAY USE OWN MEDS, ALL PO SCH (13:30)
[2020-06-04] MEDS ORDERED: ATROPINE INJ 0.4 MG/ML SDV ONE (15:49)
[2020-06-05] VITALS (10 sets, daily range): BP systolic 105–140; BP diastolic 59–93
[2020-06-05] MEDS: LACTATED RINGERS 1,000 ML IV SCH (07:52)
[2020-06-05] MEDS: NS IV 1000 ML 1,000 ML IV SCH ×2 (07:52→11:20)
[2020-06-05 08:04] LABS: HEMOGLOBIN 13.6 g/dL (13.3-17.7); MEAN PLATELET VOLUME 9.1 fL (9.0-12.2); WHITE BLOOD COUNT 4.8 10^3/uL (4.3-11.0)
[2020-06-05 08:16] LABS: CHLORIDE 107 MMOL/L (98-107); POTASSIUM 3.9 MMOL/L (3.6-5.0); SODIUM 138 MMOL/L (135-145)
[2020-06-05 08:18] LABS: GLUCOSE 93 MG/DL (70-105)
[2020-06-05 08:19] LABS: CARBON DIOXIDE 21 MMOL/L (21-32)
[2020-06-05 08:22] LABS: CREATININE SERUM 0.94 MG/DL (0.60-1.30); GFR ESTIMATED > 60
[2020-06-05 08:23] LABS: BUN/CREATININE RATIO 12
--- NOTE | 2020-06-05 08:27 | Progress Note ---
Subjective Date Seen by a Provider: Jun 05, 2020 Time Seen by a Provider: 08:23 Subjective/Events-last exam Fwup NSTEMI--S/P stent to RCA, HTN, bradycardia, mixed hyperlipidemia, history of cranial hemorrhage, history of pulmonary nodules, history of renal cyst. Sitting up in bed. Feels good. Objective Exam Vital Signs Date Time Temp Pulse Resp B/P (MAP) Pulse Ox O2 Delivery O2 Flow Rate FiO2 06/05/20 08:00 54 132/93 (106) 95 Room Air 06/05/20 06:00 44 105/63 (77) 95 Room Air 06/05/20 05:00 46 140/89 (106) 95 Room Air 06/05/20 04:00 70 116/85 (95) 93 Room Air 06/05/20 03:00 46 117/67 (84) 93 Room Air 06/05/20 02:00 53 119/77 (91) 94 Room Air 06/05/20 01:00 51 115/67 (83) 93 Room Air 06/05/20 00:00 56 137/83 (101) 92 Room Air 06/04/20 23:45 36.4 06/04/20 23:00 56 150/89 (109) 94 Room Air 06/04/20 22:00 61 143/89 (107) 91 Room Air 06/04/20 21:00 64 168/107 (127) 94 Room Air 06/04/20 20:00 Room Air 06/04/20 20:00 36.3 06/04/20 20:00 49 165/90 (115) 95 Room Air 06/04/20 19:00 61 06/04/20 19:00 52 147/92 (110) 95 Room Air 06/04/20 18:00 50 33 145/93 (110) 95 Room Air 06/04/20 17:00 45 12 136/86 (103) 93 Room Air 06/04/20 16:00 53 14 158/106 (123) 96 Room Air 06/04/20 15:15 57 11 152/78 (102) 95 Room Air 06/04/20 15:00 57 15 141/67 (91) Room Air 06/04/20 14:45 53 19 157/76 (103) Room Air 06/04/20 14:30 67 28 144/71 (95) Room Air 06/04/20 14:15 61 25 145/72 (96) Room Air 06/04/20 14:00 49 9 156/75 (102) Room Air 06/04/20 13:45 56 20 166/79 (108) Room Air 06/04/20 13:42 49 I & O 06/05/20 07:00 Intake Total 150 ml Output Total 1050 ml Balance -900 ml Capillary Refill : Less Than 3 Seconds General Appearance: No Apparent Distress Neck: Supple Respiratory: Lungs Clear Cardiovascular: Regular Rate, Rhythm Gastrointestinal: normal bowel sounds, non tender, soft Extremity: Non Tender, No Calf Tenderness, No Pedal Edema Neurologic/Psychiatric: Alert, Oriented x3 Skin: Warm/Dry, Other (right groin dressing in place with no pain and no bruising) Results Lab Laboratory Tests 06/05/20 07:55: White Blood Count 4.8, Red Blood Count 4.31, Hemoglobin 13.6, Hematocrit 40, Mean Corpuscular Volume 93, Mean Corpuscular Hemoglobin 32, Mean Corpuscular Hemoglobin Concent 34, Red Cell Distribution Width 12.7, Platelet Count 173, Mean Platelet Volume 9.1, Sodium Level 138, Potassium Level 3.9, Chloride Level 107, Carbon Dioxide Level 21, Anion Gap 10, Blood Urea Nitrogen 11, Creatinine 0.94, Estimat Glomerular Filtration Rate > 60, BUN/Creatinine Ratio 12, Glucose Level 93, Calcium Level 9.0 Assessment/Plan Assessment/Plan Assess & Plan/Chief Complaint 1. NSTEMI--S/P stent to RCA--home per cardiology 2. Hypertension with Bradycardia--on metoprolol 3. Past History of Cranial Hemorrhage--stable, patient states was never conclusive reason for brain bleed, we did discuss following up with neurology again due to having to be on blood thinners now 4. Mixed Hyperlipidemia--discussed statin intolerance and possible options to try 5. History of pulmonary nodules/renal cyst--will discuss fwup scans with Dr. Rodriguez as outpatient Clinical Quality Measures AMI/AHF: ASA po Prior to arrival: ELIZABETH Pena DO Jun 05, 2020 08:27
[2020-06-05] MEDS: ASPIRIN 81 MG CHEW (CHILDREN'S ASA) PO SCH (08:30)
[2020-06-05] MEDS: CLOPIDOGREL 75 MG (PLAVIX) TABLET PO SCH (08:31)
[2020-06-05] MEDS: LOSARTAN 50 MG (COZAAR) TAB PO SCH (08:32)
[2020-06-05] MEDS: ENOXAPARIN 40 MG/0.4 ML (LOVENOX) SYR SC SCH (08:32)
[2020-06-05] MEDS ORDERED: ASPI81TA64 PO (09:22)
[2020-06-05] MEDS ORDERED: CLOP75TA28 PO (09:22)
[2020-06-05] MEDS ORDERED: LOSA50TA63 PO (09:22)
[2020-06-05] MEDS ORDERED: MTP25TSR PO (09:22)
--- NOTE | 2020-06-05 09:51 | Progress Note - Cardiology ---
Cardiology SOAP Progress Note Subjective: In bed No c/o CP, SOB, palpitations, syncope or near syncope No c/o right groin discomfort States he feels good Objective: I&O/Vital Signs Weight (Pounds): 185 Weight (Ounces): 0.0 Weight (Calculated Kilograms): 83.814923 Side: right Condition: DP/PT pulses palpable Bruising: mild bruising Constitutional: AAO x 3, well-developed, well-nourished Respiratory: No accessory muscle use; other (good, bilateral air entry) Cardiovascular: regular rate-rhythm, S1 and S2, systolic murmur (soft AHSAN at card base) Gastrointestional: No tender; soft; No guarding, No rebound; audible bowel sounds Extremities: No clubbing, No cyanosis, No significant edema Neurologic/Psychiatric: oriented x 3, other (moves all limbs equally) Skin: No rash on exposed areas, No ulcerations on exposed areas Results/Procedures: Labs A/P: Assessment: CAD - Ac NSTEMI / unstable angina on 06/03/20 - Cath of 06/04/20: 95% mid RCA stented with Kaylan 3.0 x 38 (post-dilated with 3.5 mm balloon), 40% bifurcation LAD, mild plaques LCX, RCA dominant, LVEF 60%, LVEDP 20 mmHg Cardiac risk factors - Fam h/o early CAD (mother had CABG in her mid 50s, father had heart dz in his early 40s) - Hypertension - Hyperlipidemia, but has intolerance to statin d/t muscle aches Echocardiogram of June 2016 showed LVEF 65%. Mild aortic valve sclerosis. No significant valvular regurg H/o Near-syncope - no further c/o - Ambulatory heart monitor from June 2016 (ZIO patch) showed intermittent BBB, isolated SVEs were rare, isolated VEs were rare H/o intracranial bleed in Mar 2016 - spontaneous, without any remaining sequelae (was hsp to Terrie Viramontes) - MRI of May 2016: right parietal hemorrhage evolution is seen with signal intensity reflecting remaining blood products are noted. Intracranial bleed history is followed by Dr. Rodriguez CT of the chest from May 2016 showed indeterminate 1.3 cm superior segment RLL nodule and 4 mm nodules along the major and minor fissures on the right side. Groundglass opacity. Left kidney mass of 1.5 cm. Cystic 3.6 cm lesion lower pole of the right kidney - following with Dr. Rodriguez R pulm nodules and a small hypodense lesion in L kidney, found on w/u at [place] in Mar 2016, followed by Dr. Rodriguez Incomp RBBB and LAFB, chronic Plan: * DAPT * Cannot tolerate statin - lengthy discussion regarding statins and he states he has had multiple failed attempts at various statins * Continue beta-bigg * I personally called Dr Rodriguez on , his pcp, and sought her advice regarding the use of antiplatelet agents and anticoag. 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
--- NOTE | 2020-06-05 11:15 | Progress Note - Cardiology ---
Cardiology SOAP Progress Note Subjective: No cp or palp or syncope or shortness of breath No groin or leg discomfort No n/v/d No other symptoms Objective: I&O/Vital Signs 06/04/20 06/05/20 06/05/20 06/05/20 23:45 00:00 01:00 02:00 Temp 36.4 Pulse 56 51 53 B/P (MAP) 137/83 (101) 115/67 (83) 119/77 (91) Pulse Ox 92 93 94 O2 Delivery Room Air Room Air Room Air 06/05/20 06/05/20 06/05/20 06/05/20 03:00 04:00 05:00 06:00 Pulse 46 70 46 44 B/P (MAP) 117/67 (84) 116/85 (95) 140/89 (106) 105/63 (77) Pulse Ox 93 93 95 95 O2 Delivery Room Air Room Air Room Air Room Air 06/05/20 06/05/20 06/05/20 06/05/20 08:00 08:35 08:46 09:00 Pulse 54 57 50 B/P (MAP) 132/93 (106) 116/73 (87) Pulse Ox 95 94 O2 Delivery Room Air Room Air Room Air 06/05/20 10:00 Pulse 61 B/P (MAP) 119/59 (79) Pulse Ox 95 O2 Delivery Room Air 06/05/20 00:00 Intake Total 100 ml Output Total 550 ml Balance -450 ml Weight (Pounds): 185 Weight (Ounces): 0.0 Weight (Calculated Kilograms): 83.990829 Side: right Condition: DP/PT pulses palpable Bruising: mild bruising Constitutional: AAO x 3, well-developed, well-nourished Respiratory: No accessory muscle use; other (good, bilateral air entry) Cardiovascular: regular rate-rhythm, S1 and S2, systolic murmur (soft AHSAN at card base) Gastrointestional: No tender; soft; No guarding, No rebound; audible bowel sounds Extremities: No clubbing, No cyanosis, No significant edema Neurologic/Psychiatric: oriented x 3, other (moves all limbs equally) Skin: No rash on exposed areas, No ulcerations on exposed areas Results/Procedures: Labs Laboratory Tests 06/05/20 07:55: White Blood Count 4.8, Red Blood Count 4.31, Hemoglobin 13.6, Hematocrit 40, Mean Corpuscular Volume 93, Mean Corpuscular Hemoglobin 32, Mean Corpuscular Hemoglobin Concent 34, Red Cell Distribution Width 12.7, Platelet Count 173, Mean Platelet Volume 9.1, Sodium Level 138, Potassium Level 3.9, Chloride Level 107, Carbon Dioxide Level 21, Anion Gap 10, Blood Urea Nitrogen 11, Creatinine 0.94, Estimat Glomerular Filtration Rate > 60, BUN/Creatinine Ratio 12, Glucose Level 93, Calcium Level 9.0 Laboratory Tests 06/03/20 13:00 06/05/20 07:55 A/P: Assessment: CAD - Ac NSTEMI / unstable angina on 06/03/20 - Cath of 06/04/20: 95% mid RCA stented with Kaylan 3.0 x 38 (post-dilated with 3.5 mm balloon), 40% bifurcation LAD, mild plaques LCX, RCA dominant, LVEF 60%, LVEDP 20 mmHg Cardiac risk factors - Fam h/o early CAD (mother had CABG in her mid 50s, father had heart dz in his early 40s) - Hypertension - Hyperlipidemia, but has intolerance to statin d/t muscle aches Echocardiogram of June 2016 showed LVEF 65%. Mild aortic valve sclerosis. No significant valvular regurg H/o Near-syncope - no further c/o - Ambulatory heart monitor from June 2016 (ZIO patch) showed intermittent BBB, isolated SVEs were rare, isolated VEs were rare H/o intracranial bleed in Mar 2016 - spontaneous, without any remaining sequelae (was hsp to Terrie Viramontes) - MRI of May 2016: right parietal hemorrhage evolution is seen with signal intensity reflecting remaining blood products are noted. Intracranial bleed history is followed by Dr. Rodriguez CT of the chest from May 2016 showed indeterminate 1.3 cm superior segment RLL nodule and 4 mm nodules along the major and minor fissures on the right side. Groundglass opacity. Left kidney mass of 1.5 cm. Cystic 3.6 cm lesion lower pole of the right kidney - following with Dr. Rodriguez R pulm nodules and a small hypodense lesion in L kidney, found on w/u at [place] in Mar 2016, followed by Dr. Rodriguez Incomp RBBB and LAFB, chronic Plan: * DAPT * Cannot tolerate statin - lengthy discussion regarding statins and he states he has had multiple failed attempts at various statins * Continue beta-bigg * I personally called Dr Rodriguez on , his pcp, and sought her advice regarding the use of antiplatelet agents and anticoag. She felt that these would be safe to use, especially given his presentation ACS * Ok to discharge home today with out pt f/u * May resume work beginning 06/08/20 Clinical Quality Measures AMI/AHF: ASA po Prior to arrival: GERMÁN Chester MD FACP FAC CCDS Jun 05, 2020 11:15
--- NOTE | 2020-07-01 17:28 | CARDIAC CATHETERIZATION ---
DATE OF SERVICE: 06/04/2020 CARDIAC CATHETERIZATION AND CORONARY INTERVENTION REPORT The patient is a 60-year-old gentleman who was admitted with unstable angina. Cardiac catheterization was carried out on 06/04/2020 after having obtained an informed consent for cardiac catheterization and possible ad hoc coronary intervention. DESCRIPTION OF PROCEDURE: He was brought to the cardiac catheterization laboratory. Right groin was prepared and draped in the usual sterile fashion. Lidocaine 1% was used for local anesthesia. Modified Seldinger technique was used to advance a 5-British sheath into the right femoral artery. A 5-British JL4 catheter was used for left coronary angiography. A 5-British JR4 catheter was used for right coronary angiography. A 5-British pigtail catheter was used for left heart catheterization and left ventricular angiography. Subsequently, percutaneous intervention was carried out to the right coronary artery and is described below. PERCUTANEOUS INTERVENTION TO THE RIGHT CORONARY ARTERY: We exchanged the sheath over a wire for a 6-British sheath. We used a 6-British JR4 guide catheter. A wire was advanced across the lesion and balloon angioplasty was carried out with a 2.5 x 20 mm balloon. The lesion was then stented with Xience Kaylan 3.0 x 38 mm stent and post-dilation of the stent was carried out with a 3.5 x 25 mm balloon. This resulted in resolution of the stenosis and the patient tolerated the procedure well. The angioplasty equipment was removed. Sheath was sutured in place. The patient was transferred to the floor for manual sheath removal. HEMODYNAMICS: Left ventricular end-diastolic pressure following coronary angiography was 20 mmHg. There was no significant pressure gradient on pullback across the aortic valve. Ascending aortic pressure was 116/68 with a mean of 90 mmHg. CORONARY ANGIOGRAPHY: 1. Left main coronary artery does not exhibit significant disease. Left anterior descending artery has 40% bifurcation stenosis. Left circumflex had mild plaques. Right coronary artery was dominant and had 95% mid vessel stenosis that was stented with Kaylan 3.0 x 38 mm stent (postdilated with 3.5 mm balloon). 2. Well preserved global left ventricular systolic function with ejection fraction of 60%. 3. Elevated left ventricular end-diastolic pressure. Job ID: [id number] DocumentID: [id number] Dictated Date: 07/01/2020 13:02:50 Swing Grinder Date: 07/01/2020 17:28:10 Dictated By: GERMÁN GOSS MD, MA, FACP, FACC,
--- NOTE | 2020-07-02 13:41 | Conscious Sedation/ASA ---
Conscious Sedation Pre-Proced ASA Score For ASA 3 and 4: Consider anesthesia and medical clearance. Also, for patients with a history of failed moderate sedation consider anesthesia. Airway Lungs Heart ASA score ASA 1: a normal healthy patient ASA 2: a patient with a mild systemic disease (mid diabetes, controlled hypertension, obesity ASA 3: a patient with a severe systemic disease that limits activity (angina, COPD, prior Myocardial infarction) ASA 4: a patient with an incapacitating disease that is a constant threat to life (CHF, renal failure) ASA 5: a moribund patient not expected to survive 24 hrs. (ruptured aneurysm) ASA 6: a declared brain- patient whose organs are being harvested. For emergent operations, add the letter E after the classification Sedation Plan The patient is an appropriate candidate to undergo the planned procedure, sedation, and anesthesia. The patient immediately re-assessed prior to indication. KEITH FLOYD Jul 02, 2020 13:41
== END 2020-06-05 12:00 | disposition home or self-care (01) | DRG 246 ==
LOC: EDUNIT# 12:50 → ER 12:51 → CSD 13:56 → ICU 06-04 13:35
PROVIDERS: ADMIT Internal Medicine Cardiovascular Disease; ATTEND Internal Medicine Cardiovascular Disease
PROC: 027034Z Dilation of Coronary Artery, One Artery with Drug-eluting Intraluminal Device, Percutaneous Approach (ICD-10-PCS; principal; 2020-06-03)
PROC: 4A023N7 Measurement of Cardiac Sampling and Pressure, Left Heart, Percutaneous Approach (ICD-10-PCS; 2020-06-03)
PROC: B2111ZZ Fluoroscopy of Multiple Coronary Arteries using Low Osmolar Contrast (ICD-10-PCS; 2020-06-03)
PROC: B2151ZZ Fluoroscopy of Left Heart using Low Osmolar Contrast (ICD-10-PCS; 2020-06-03)
DX: I25.110 Atherosclerotic heart disease of native coronary artery with unstable angina pectoris (principal); I21.4 Non-ST elevation (NSTEMI) myocardial infarction; I24.9 Acute ischemic heart disease, unspecified; I10 Essential (primary) hypertension; E78.5 Hyperlipidemia, unspecified; R91.1 Solitary pulmonary nodule; F32.9 Major depressive disorder, single episode, unspecified; R00.1 Bradycardia, unspecified; Z85.820 Personal history of malignant melanoma of skin; Z86.73 Personal history of transient ischemic attack (TIA), and cerebral infarction without residual deficits; Z88.1 Allergy status to other antibiotic agents; Z88.0 Allergy status to penicillin; Z82.49 Family history of ischemic heart disease and other diseases of the circulatory system; N28.9 Disorder of kidney and ureter, unspecified
CPT/HCPCS: 36415; 71045; 80048; 80053; 80061; 83735; 83874; 83880; 84484; 85025; 85027; 85610; 85730; 93005; 93041; 93458; 96372

== ENCOUNTER 2020-12-10 05:42 | Outpatient (CLI) | payer OTHER ==
[~2020-12-10] VITALS: Ht 180.3 cm; Wt 84.0 kg
[~2020-12-10 05:42] MED LIST changes: +ACET-2267 PO; +ASPI81TA64 PO; +CHOL100048 PO; +CLOP75TA28 PO; +ERGO1250 PO; +ESCI-2 PO; +ESCI10TA PO; +EZET10TA49 PO; +FAMO20TA3 PO; +IBUP-2185 PO; +LOSA100T57 PO; +MTP25TSR PO
[2020-12-10] MEDS ORDERED: LOSA50TA63 PO (13:37)
[2020-12-10] MEDS ORDERED: PANT40TA52 PO (13:37)
[2020-12-10] MEDS ORDERED: MTP25TSR PO (13:37)
[2020-12-10] MEDS ORDERED: CLOP75TA28 PO (13:37)
[2020-12-10] MEDS ORDERED: BENZ-36 PO (13:37)
[2020-12-10] MEDS ORDERED: AMLO-250 PO (13:37)
[2020-12-10] MEDS ORDERED: FENO145T26 PO (13:37)
== END 2020-12-10 13:45 | disposition home or self-care (01) ==
LOC: PREOP 05:42
PROVIDERS: ATTEND Surgery
DX: Z01.818 Encounter for other preprocedural examination (principal)

== ENCOUNTER 2020-12-17 09:28 | Day surgery (SDC) | payer OTHER ==
--- NOTE | 2020-12-15 14:53 | HISTORY AND PHYSICAL ---
DATE OF SERVICE: PROCEDURE DATE: 12/17/2020. ATTENDING PRIMARY CARE PHYSICIAN: Dr. Amarilis Rodriguez. HISTORY: The patient is a 60-year-old male who is known to us. He was seen in November 2016 for a colonoscopy and at that time, was found to have a mild sigmoid diverticulosis. He then reports that over the last 3 to 4 years, he has had approximately 6 to 8 episodes of diverticulitis requiring antibiotics. He reports that this year they have become more frequent and he has been having the episodes about every 3 months apart. He reports that he usually gets lower abdominal pain and does get fevers at that time. He reports that he has not been hospitalized for any episodes. He denies any family history of any colon cancer as well as no blood in his stool. He reports that he has been taking Cipro and Flagyl for the episodes in the past. He reports he was also found to have an umbilical hernia in his last exam by his primary care physician. He reports he is unsure how long this has been there, but denies any significant pain or bulging. PAST MEDICAL HISTORY: Stroke in 2016, melanoma in 1999, hypertension, hyperlipidemia, obstructive sleep apnea, diverticulosis with diverticulitis, coronary artery disease, gastroesophageal reflux disease. PAST SURGICAL HISTORY: Cardiac catheterization with stent placement x1, excision of melanoma from back in 1999. ALLERGIES: NIASPAN, PENICILLIN, ROCEPHIN, LIPITOR, CRESTOR. MEDICATIONS: Vitamin D3, CoQ10, aspirin 81 mg daily, Protonix 40 mg daily, fenofibrate 145 mg daily, losartan 50 mg, metoprolol ER 25 mg daily, Plavix 75 mg daily. SOCIAL HISTORY: Negative for tobacco smoke, social for alcohol. FAMILY HISTORY: Mother, father, sister and brother, hypertension. VITAL SIGNS: Blood pressure is 140/93. Current weight is 187 pounds, 5 feet 11 inches. REVIEW OF SYSTEMS: This is a well-nourished male in no acute distress. He is not experiencing any shortness of breath or difficulty breathing. No chest pain, palpitations or diaphoresis. No nausea, vomiting. He does report episodes of lower abdominal pain that is achy to sharp in nature as well as some mild discomfort of the umbilical region. No diarrhea or constipation. No red blood per rectum. No dark tarry stools. He does report occasional fevers, but no chills. No recent inadvertent weight loss. All other review of systems negative. PHYSICAL EXAMINATION: CHEST: Clear. Good breath sounds bilaterally. HEART: Regular, no murmurs. EXTREMITIES: No lower extremity edema. Negative Homans sign. HEENT: No scleral icterus. NECK: No cervical lymphadenopathy. ABDOMEN: Soft, nondistended. There is a reducible umbilical hernia that is mildly tender to palpation. No palpable masses. No organomegaly. SKIN: Warm, dry and pink. NEUROLOGIC: Awake, alert and oriented x3. ASSESSMENT AND PLAN: A 60-year-old male with recurrent episodes of diverticulitis as well as an umbilical hernia. At this time, we will proceed with scheduling him for a followup colonoscopy as well as an umbilical hernia repair with mesh. The risks and benefits of the procedure as well as the procedure and home care instructions were explained to the patient. The patient verbalized understanding of instructions and agrees to proceed as planned. At this time, we will schedule him for the open umbilical hernia repair with mesh and a colonoscopy. Job ID: [id number] DocumentID: [id number] Dictated Date: 12/15/2020 14:38:36 Coal Picker Date: 12/15/2020 14:51:41 Dictated By: ELIEL GARCIA APRN
[~2020-12-17] VITALS: Ht 180 cm; Wt 84.0 kg
[2020-12-17] VITALS (11 sets, daily range): BP systolic 110–118; BP diastolic 72–83
[~2020-12-17 09:28] MED LIST changes: +AMLO-250 PO; +BENZ-36 PO; +FENO145T26 PO; +PANT40TA52 PO
[2020-12-17] MEDS ORDERED: LACTATED RINGERS 1,000 ML IV ONE (09:39)
[2020-12-17] MEDS ORDERED: CLINDAMYCIN 600 MG/50 ML IVPB 50 ML IV ONE ×2 (09:45→09:57)
--- NOTE | 2020-12-17 09:52 | Progress Note-Pre Operative ---
Pre-Operative Progress Note H&P Reviewed The H&P was reviewed, patient examined and no changes noted. Date Seen by Provider: Dec 17, 2020 Time Seen by Provider: 09:50 Date H&P Reviewed: Dec 17, 2020 Time H&P Reviewed: 09:45 Pre-Operative Diagnosis: Umbilical hernia, Diverticulitis ELIEL GARCIA APRN Dec 17, 2020 09:52
[2020-12-17] MEDS ORDERED: HYDR-3817 PO (09:54)
--- NOTE | 2020-12-17 09:55 | Discharge Inst-Surgical ---
D/C Lap Instructions-KIDO Reconcile Patient Problems Problems Reviewed?: Yes New, Converted, or Re-Newed RX: RX on Chart Follow Up Appt in 2 weeks Activity as tolerated No driving for 24 hours No driving while on pain medications Incentive Spirometry use every 2 hours while awake Regular Diet High Fiber Diet 25g or more per day Drink 64 fluid oz or more of fluids per day. Symptoms to Report: Fever over 101 degree F, Nausea/Vomiting Infection Signs and Symptoms to report: Increased redness, Foul odor of wound, Increased drainage Bathing instructions: May shower Operative Area Clean/Dry; Keep incision clean/dry ELIEL GARCIA STOCK PARTS FABRICATOR Dec 17, 2020 09:55
[2020-12-17] MEDS ORDERED: ACETAMINOPHEN 325 MG TABLET PO PRN (10:00)
[2020-12-17] MEDS ORDERED: morphine INJ 10 MG/ML 1ML (SYR OR VIAL) IVP PRN (10:00)
[2020-12-17] MEDS ORDERED: ONDANSETRON 4 MG/2 ML (SDV) Z0FRAN IVP PRN ×2 (10:00→13:15)
[2020-12-17] MEDS ORDERED: HYDROcodone/APAP 5 MG/325 MG (LORTAB) TAB PO ONE (10:00)
[2020-12-17] MEDS: LACTATED RINGERS 1,000 ML IV PRN ×2 (10:05→12:20)
[2020-12-17] MEDS ORDERED: LIDOCAINE/EPI 1%-1:200,000 (XYLOCAINE) 30 ML VIAL ONE (10:59)
[2020-12-17] MEDS ORDERED: ROCURONIUM 10 MG/ML 5 ML SYRINGE IV ONE (11:36)
[2020-12-17] MEDS ORDERED: LIDOCAINE PF 2% 5 ML (XYLOCAINE) VIAL ONE (11:36)
[2020-12-17] MEDS ORDERED: proPOfol 200 MG/20 ML (DIPRIVAN) VIAL IV ONE (11:36)
[2020-12-17] MEDS ORDERED: ONDANSETRON 4 MG/2 ML (SDV) Z0FRAN ONE ×2 (11:36→13:11)
[2020-12-17] MEDS ORDERED: fentaNYL INJ 100 MCG/2 ML AMP ONE (11:37)
[2020-12-17] MEDS ORDERED: MIDAZOLAM 2 MG/2 ML (VERSED) VIAL ONE (11:37)
[2020-12-17] MEDS ORDERED: NEOSTIGMINE 3 MG/3 ML VIAL ONE (12:24)
[2020-12-17] MEDS ORDERED: GLYCOPYRROLATE 0.2 MG/ML (ROBINUL) 2 ML VIAL ONE (12:24)
--- NOTE | 2020-12-17 12:35 | Progress Note-Post Operative ---
Post-Operative Progess Note Surgeon (s)/Pt Skilled (s) Surgeon Dr. Abdulkadir Herndon M.D. Pt Skilled: Tomás Garcia BONDED STRAND OPERATOR Pre-Operative Diagnosis Umbilical hernia, Diverticulitis Post-Operative Diagnosis Umbilical hernia and mild sigmoid diverticulosis Procedure & Operative Findings Date of Procedure 12/17/20 Procedure Performed/Findings Open umbilical hernia repair with mesh, Colonoscopy Anesthesia Type GET Estimated Blood Loss Estimated blood loss (mL): Minimal Specimens/Packing Specimens Removed NONE TOMÁS GARCIA BONDED STRAND OPERATOR Dec 17, 2020 12:34
[2020-12-17] MEDS ORDERED: SEVOFLURANE (ULTANE) 15 ML INHAL SOLN ONE (12:39)
[2020-12-17] MEDS ORDERED: morphine INJ 10 MG/ML 1ML (SYR OR VIAL) ONE (13:10)
--- NOTE | 2020-12-17 13:11 | Anesthesia-General Post-Op ---
General Patient Condition Mental Status/LOC: Same as Preop Cardiovascular: Satisfactory Nausea/Vomiting: Absent Respiratory: Satisfactory Pain: Controlled Complications: Absent Post Op Complications Complications None Follow Up Care/Instructions Patient Instructions None needed. Anesthesia/Patient Condition Patient Condition Patient is doing well, no complaints, stable vital signs, no apparent adverse anesthesia problems. No complications reported per nursing. DEE IBANEZ CRNA Dec 17, 2020 13:11
[2020-12-17] MEDS ORDERED: morphine INJ 10 MG/ML 1ML (SYR OR VIAL) IVP ONE (13:15)
[2020-12-17] MEDS ORDERED: HYDROcodone/APAP 5 MG/325 MG (LORTAB) TAB ONE (14:26)
--- NOTE | 2020-12-17 17:08 | OPERATIVE REPORT ---
DATE OF SERVICE: 12/17/2020 ATTENDING PRIMARY CARE PHYSICIAN: Amarilis Rodriguez MD. PREOPERATIVE DIAGNOSES: Symptomatic reducible umbilical hernia. Mild sigmoid diverticulosis. POSTOPERATIVE DIAGNOSES: Reducible umbilical hernia, mild sigmoid diverticulosis with no mucosal inflammatory change. PROCEDURES PERFORMED: Open umbilical hernia repair with mesh and colonoscopy. SURGEON: Erin Herndon MD. VICE PRESIDENT OF CONTRACTS: Tomás Villanueva APRN. ANESTHESIA: General endotracheal. ESTIMATED BLOOD LOSS: Minimal. FINDINGS: Same as postoperative diagnosis. DISPOSITION: The patient tolerated the procedure well. INDICATIONS FOR PROCEDURE: The patient is a 60-year-old male who we have seen in 2017 for mild sigmoid diverticulosis. For the past four years, he has states that he has had six to eight episodes of diverticulitis requiring antibiotics approximately three months apart. He was also found to have an umbilical hernia, which was reducible; however, tender to palpation. He is otherwise tolerating a diet and having normal bowel movements. DESCRIPTION OF PROCEDURE: The patient was brought to the operating room and laid supine on the table. After adequate IV pain and sedative medications and general endotracheal intubation, the abdomen was prepped and draped in a standard surgical fashion. A 0.5% Marcaine with epinephrine was used to anesthetize the overlying skin in the supraumbilical rim and a crescent shaped skin incision was made using a 15 blade. The subcutaneous tissue was then dissected down using electrocautery. The hernia sac was identified and completely dissected out using blunt dissection as well as electrocautery to the fascial base, which was small, approximately 1.5 cm in size. The hernia sac was then excised using electrocautery with visualization of good hemostasis. An 8 cm coated polypropylene mesh was then placed into the defect and then sutured concentrically to the mesh in a transfascial manner using interrupted 0 Prolene sutures. Good hemostasis was observed. The subcutaneous tissue was then reapproximated using interrupted 3-0 Vicryl sutures. Skin was closed using 4-0 Monocryl running subcuticular sutures. Wound was then cleaned and covered with Dermabond. The tonsil sponges were then placed in the umbilicus followed by 4 x 4 gauze followed by a large Op-Site followed by an abdominal binder. The patient was then placed in frog legged position and a digital rectal examination was performed. No significant hemorrhoids were identified. Prostate gland was palpable and appeared normal. The endoscope was then intubated and anus and rectum gently insufflated. The endoscope was then advanced to the valves of Renteria of the rectum with no polyps or any neoplasms identified. Through the sigmoid colon, only a mild sigmoid diverticulosis identified. There were no mucosal inflammatory changes to indicate any active diverticulitis. The endoscope was then advanced to the remainder of the descending, transverse and ascending colon to the cecum. These segments appeared to be normal. There were no polyps or any neoplasms identified as well as no mucosal inflammatory changes to indicate any active colitis. The endoscope was then slowly withdrawn while taking a second look and suctioning of residual air with no additional findings. The patient tolerated the procedure well. We will start IV normal pain medication as well as a clear liquid diet. Once he is tolerating clears, has good pain control with oral pain medications, and ambulating well, we will discharge him home. He will be instructed on no heavy lifting or exertion for the next two weeks and then slowly incorporate more activity and he will also wear his abdominal binder for the next two weeks. It is unsure if he had previous diverticulitis or some level of undiagnosed inflammatory bowel disease and once he has another episode, we will have him return for followup and potential diagnostic imaging. Job ID: [id number] DocumentID: [id number] Dictated Date: 12/17/2020 12:51:00 Creasing And Cutting Press Feeder Date: 12/17/2020 17:07:31 Dictated By: ERIN HERNDON MD [facility]
== END 2020-12-17 14:55 | disposition home or self-care (01) ==
LOC: SDC 09:28
PROVIDERS: ATTEND Surgery
DX: K42.9 Umbilical hernia without obstruction or gangrene (principal); K57.30 Diverticulosis of large intestine without perforation or abscess without bleeding; I25.10 Atherosclerotic heart disease of native coronary artery without angina pectoris; I10 Essential (primary) hypertension; K21.9 Gastro-esophageal reflux disease without esophagitis; E78.5 Hyperlipidemia, unspecified; G47.33 Obstructive sleep apnea (adult) (pediatric); J44.9 Chronic obstructive pulmonary disease, unspecified; Z99.89 Dependence on other enabling machines and devices; Z79.899 Other long term (current) drug therapy; Z79.02 Long term (current) use of antithrombotics/antiplatelets; Z79.82 Long term (current) use of aspirin
CPT/HCPCS: 87081

== ENCOUNTER → 2022-10-21 | Outpatient (CLI) | payer OTHER ==
[~2022-10-21] VITALS: Ht 170 cm; Wt 84.0 kg
[~2022-10-21] MED LIST changes: +CIPROFLOXACIN 400 MG/D5W 200 ML (PRE-MIX) IV NR; +CIPROFLOXACIN IV 400MG/200ML 200 ML IV ONE; +HYDR-3817 PO; -LOSA100T57 PO; +LOSA100T58 PO; +fentaNYL INJECTION 100 MCG/2 ML VIAL IV NR; +fentaNYL INJECTION 100 MCG/2 ML VIAL ONE; +metroNIDAZOLE 500MG/100ML IVPB 100 ML IV NR; +metroNIDAZOLE 500MG/100ML IVPB 100 ML ONE
[2022-10-21 09:55] VITALS: BP 146/109
== END ==
LOC: SDC 09:52
PROVIDERS: ATTEND Nurse Practitioner Family
DX: K57.92 Diverticulitis of intestine, part unspecified, without perforation or abscess without bleeding (principal)
CPT/HCPCS: 96365; 96366; 96374

== ENCOUNTER 2022-12-24 14:01 | Observation (INO) | payer OTHER ==
[~2022-12-24] VITALS: Ht 163.4 cm; Wt 82.0 kg
[~2022-12-24 14:01] MED LIST changes: -CIPROFLOXACIN 400 MG/D5W 200 ML (PRE-MIX) IV NR; -CIPROFLOXACIN IV 400MG/200ML 200 ML IV ONE; +DOXY100T2 PO; +FAMO-356 PO; -FAMO20TA3 PO; -fentaNYL INJECTION 100 MCG/2 ML VIAL IV NR; -fentaNYL INJECTION 100 MCG/2 ML VIAL ONE; -metroNIDAZOLE 500MG/100ML IVPB 100 ML IV NR; -metroNIDAZOLE 500MG/100ML IVPB 100 ML ONE
[2022-12-24] MEDS ORDERED: NS IV 1000 ML 1,000 ML IV STA (14:28)
--- NOTE | 2022-12-24 14:28 | ED Fever ---
History of Present Illness General Chief Complaint: Head/Cervical Problems Stated Complaint: SEVERE HAAS Nursing Triage Note: PT STATES FEVER AND HEADACHE FOR A COUPLE WEEKS, HX OF BRAIN BLEED, WAS HERE LAST NIGHT FOR THE SAME Source: patient, family, old records Exam Limitations: no limitations History of Present Illness Date Seen by Provider: Dec 24, 2022 Time Seen by Provider: 14:03 Initial Comments 62-year-old male with past medical history most notable for ischemic stroke, hemorrhagic stroke, CAD with stenting, HLD, HTN coming in due to mostly fever of unknown origin. Patient has had a fever with night sweats daily for almost 2 weeks now. He has been to the ER in [place] as well as this emergency department over the past couple of weeks. Work-up has showed increased inflammatory markers. He is also had work-up done as an outpatient. Reportedly his lyme test might be positive, unsure if it is IgM vs IgG. Tickborne panel otherwise reportedly negative, SANAM negative, CRP was 8, trended down to 2, RF negative, WBC normal, lactate normal based on results that the patient's has on her. Continue to have a fever through the night last night, up to 103, may be higher. He has had xevhrz-qxs-kqkvk ibuprofen and Tylenol with the most recent being ibuprofen within the past 4 hours. Lost roughly 5 pounds in the past couple weeks due to decreased p.o. intake. Denies any chest pain, abdominal pain, vomiting, diarrhea, rash, or any other concerns. Does have more of a headache today. Allergies and Home Medications Allergies Coded Allergies: Penicillins (Verified Allergy, Unknown, 04/03/16) atorvastatin (Verified Allergy, Unknown, 11/23/16) ceftriaxone (Verified Allergy, Unknown, 11/23/16) niacin (Verified Allergy, Unknown, 11/23/16) rosuvastatin (Verified Allergy, Unknown, 11/23/16) Patient Home Medication List Home Medication List Reviewed: Yes Amlodipine Besylate (Amlodipine Besylate) 5 Mg Tablet, 5 MG PO DAILY, (Reported) Entered as Reported by: MIL HICKS on 12/10/20 429 Benzonatate (Benzonatate) 100 Mg Capsule, 100 MG PO Q6H PRN for COUGH, (Reported) Entered as Reported by: MIL HICKS on 12/10/20 217 Clopidogrel Bisulfate (Clopidogrel) 75 Mg Tablet, 75 MG PO DAILY, (Reported) Entered as Reported by: MIL HICKS on 12/10/20 133 Doxycycline Hyclate (Doxycycline Hyclate) 100 Mg Tablet, 100 MG PO BID Prescribed by: JUSTIN BRAND on 12/24/22 1304 Fenofibrate Nanocrystallized (Fenofibrate) 145 Mg Tablet, 145 MG PO DAILY, (Reported) Entered as Reported by: MIL HICKS on 12/10/20 133 Hydrocodone/Acetaminophen (Hydrocodone-Acetamin 7.5-325) 1 Each Tablet, 1 EACH PO Q4H PRN for PAIN-BREAKTHROUGH Prescribed by: ELIEL GARCIA on 12/17/20 0954 Losartan Potassium (Losartan Potassium) 50 Mg Tablet, 50 MG PO DAILY, (Reported) Entered as Reported by: MIL HICKS on 12/10/20 133 Metoprolol Succinate (Metoprolol Succinate) 25 Mg Tab.er.24h, 25 MG PO DAILY, (Reported) Entered as Reported by: MIL HICKS on 12/10/20 133 Pantoprazole Sodium (Pantoprazole Sodium) 40 Mg Tablet.dr, 40 MG PO DAILY, (Reported) Entered as Reported by: MIL HICKS on 12/10/201336 Review of Systems Review of Systems Constitutional: fever, malaise EENTM: no symptoms reported Respiratory: no symptoms reported Cardiovascular: no symptoms reported Gastrointestinal: no symptoms reported Genitourinary: no symptoms reported Musculoskeletal: no symptoms reported Skin: no symptoms reported Psychiatric/Neurological: See HPI Hematologic/Lymphatic: No Symptoms Reported Immunological/Allergic: no symptoms reported All Other Systems Reviewed Negative Unless Noted: Yes Past Xwahbfy-Rdacan-Zrxvxb Hx Patient Social History Tobacco Use?: No Substance use?: No Alcohol Use?: Yes Alcohol type: Beer Alcohol Frequency: Once in a while Immunizations Up To Date First/Initial COVID19 Vaccinat: beginning may COVID19 Vaccination Robert: 06/04/20 Seasonal Allergies Seasonal Allergies: Yes (TAKES OTC COUGH MEDICINE) Past Medical History Surgery/Hospitalization HX: BRAIN BLEED, AMI, STROKE, NODULES ON KIDNEY, LOOP RECORDER, HTN Surgeries: Yes (LARGE EXCISION OF MELANOMA FROM BACK, CORONARY STENT, STROKE 5 YEARS AGO) Coronary Stent Respiratory: Yes Sleep Apnea Currently Using CPAP: Yes Cardiac: Yes High Cholesterol, Hypertension Neurological: Yes Stroke Reproductive Disorders: No Sexually Transmitted Disease: No HIV/AIDS: No Genitourinary: Yes Gastrointestinal: Yes Abdominal Hernia, Gastroesophageal Reflux, Diverticulosis Musculoskeletal: Yes Arthritis Endocrine: No HEENT: No Loss of Vision: Denies Hearing Impairment: Denies Cancer: Yes Melanoma Did You Recieve Any Treatments: Yes What Type of Treatment Did You: Surgical Intervention Psychosocial: No Integumentary: No Blood Disorders: No Family Medical History Heart Disease, Hypertension, Stroke Physical Exam Vital Signs - First Documented 12/24/22 14:15 Temp 37.1 Pulse 95 Resp 20 B/P (MAP) 121/87 (98) Pulse Ox 97 O2 Delivery Room Air Capillary Refill : Less Than 3 Seconds Height: 5'11.00" Weight: 185lbs. 0.0oz. [id number]; 25.00 BMI Method:Stated General Appearance: WD/WN, no apparent distress Eyes: Bilateral Eye Normal Inspection HEENT: PERRL/EOMI, normal ENT inspection, pharynx normal Neck: non-tender, full range of motion, supple, normal inspection, other (no meningismus) Respiratory: chest non-tender, lungs clear, normal breath sounds, no respiratory distress, no accessory muscle use Cardiovascular: regular rate, rhythm, no edema, no murmur Gastrointestinal: normal bowel sounds, non tender, soft; No distended, No guarding Extremities: normal range of motion, non-tender, normal inspection, no pedal edema, no calf tenderness, normal capillary refill Neurologic/Psychiatric: no motor/sensory deficits, alert, normal mood/affect, oriented x 3 Skin: normal color, warm/dry Focused Exam Lactate Level 12/24/22 14:20: Lactic Acid Level 0.99 Lactic Acid Level Laboratory Tests Test 12/24/22 14:20 Lactic Acid Level 0.99 MMOL/L (0.50-2.00) Progress/Results/Core Measures Suspected Sepsis SIRS Temperature: Pulse: 95 Respiratory Rate: 20 Laboratory Tests 12/24/22 14:20: White Blood Count 6.5 Blood Pressure 121 /87 Mean: 98 12/24/22 14:20: Lactic Acid Level 0.99 Laboratory Tests 12/24/22 14:20: Creatinine 1.44H, Platelet Count 157, Total Bilirubin 1.1H Results/Orders Lab Results Laboratory Tests Test 12/24/22 14:20 12/24/22 14:31 Range/Units White Blood Count 6.5 4.3-11.0 10^3/uL Red Blood Count 4.91 4.30-5.52 10^6/uL Hemoglobin 15.5 13.3-17.7 g/dL Hematocrit 46 40-54 % Mean Corpuscular Volume 93 80-99 fL Mean Corpuscular Hemoglobin 32 25-34 pg Mean Corpuscular Hemoglobin Concent 34 32-36 g/dL Red Cell Distribution Width 12.8 10.0-14.5 % Platelet Count 157 130-400 10^3/uL Mean Platelet Volume 8.6 L 9.0-12.2 fL Immature Granulocyte % (Auto) 1 % Neutrophils (%) (Auto) 87 H 42-75 % Lymphocytes (%) (Auto) 9 L 12-44 % Monocytes (%) (Auto) 4 0-12 % Eosinophils (%) (Auto) 0 0-10 % Basophils (%) (Auto) 1 0-10 % Neutrophils # (Auto) 5.7 1.8-7.8 10^3/uL Lymphocytes # (Auto) 0.6 L 1.0-4.0 10^3/uL Monocytes # (Auto) 0.2 0.0-1.0 10^3/uL Eosinophils # (Auto) 0.0 0.0-0.3 10^3/uL Basophils # (Auto) 0.0 0.0-0.1 10^3/uL Immature Granulocyte # (Auto) 0.0 0.0-0.1 10^3/uL Neutrophils % (Manual) 80 % Lymphocytes % (Manual) 14 % Monocytes % (Manual) 5 % Band Neutrophils 1 % Blood Morphology Comment NORMAL Erythrocyte Sedimentation Rate 28 0-30 MM/HR Sodium Level 139 135-145 MMOL/L Potassium Level 4.0 3.6-5.0 MMOL/L Chloride Level 105 98-107 MMOL/L Carbon Dioxide Level 22 21-32 MMOL/L Anion Gap 12 5-14 MMOL/L Blood Urea Nitrogen 12 7-18 MG/DL Creatinine 1.44 H 0.60-1.30 MG/DL Estimat Glomerular Filtration Rate 55 BUN/Creatinine Ratio 8 Glucose Level 123 H 70-105 MG/DL Lactic Acid Level 0.99 0.50-2.00 MMOL/L Calcium Level 9.5 8.5-10.1 MG/DL Corrected Calcium 9.1 8.5-10.1 MG/DL Magnesium Level 2.0 1.6-2.4 MG/DL Total Bilirubin 1.1 H 0.1-1.0 MG/DL Aspartate Amino Transf (AST/SGOT) 58 H 5-34 U/L Alanine Aminotransferase (ALT/SGPT) 105 H 0-55 U/L Alkaline Phosphatase 91 40-136 U/L Total Creatine Kinase 84 30-200 U/L Troponin I < 0.028 <0.028 NG/ML C-Reactive Protein High Sensitivity 6.74 H 0.00-0.50 MG/DL Total Protein 8.5 H 6.4-8.2 GM/DL Albumin 4.5 3.2-4.5 GM/DL Thyroid Stimulating Hormone (TSH) 0.80 0.35-4.94 UIU/ML My Orders Orders - JUSTIN BRAND MD Cbc And Automated Diff (12/24/22 14:10) Comprehensive Metabolic Panel (12/24/22 14:10) Hs C Reactive Protein (12/24/22 14:10) Magnesium (12/24/22 14:10) Erythrocyte Sedimentation Rate (12/24/22 14:10) Protein Electroph Serum Analyz (12/24/22 14:10) Creatine Kinase (12/24/22 14:10) Ed Iv/Invasive Line Start (12/24/22 14:10) Troponin I [place] (12/24/22 14:10) Ct Head Wo (12/24/22 14:20) Ct Chest/Abdomen/Pelvis W (12/24/22 14:20) Lactic Acid Analyzer (12/24/22 14:20) Evens Singh Virus Profile (12/24/22 14:20) Iohexol Injection (Omnipaque 350 Mg/Ml 1 (12/24/22 14:30) Received Contrast (Hold Metformin- Contr (12/24/22 14:30) Ns (Ivpb) 100 Ml (Sodium Chloride 0.9% 1 (12/24/22 14:30) Prochlorperazine Injection (Prochlorpera (12/24/22 14:30) Diphenhydramine Injection (Diphenhydram (12/24/22 14:30) Ns Iv 1000 Ml (Ns Iv 1000 Ml) (12/24/22 14:28) Thyroid Stimulating Hormone (12/24/22 14:28) Manual Differential (12/24/22 14:20) Tick Panel With Lyme Eia (12/24/22 15:09) Doxycycline Hyclate Tablet (Doxycycline (12/24/22 15:09) Ed Admission (Communication) (12/24/22 15:16) Hepatitis Panel Acute (12/24/22 15:17) Medications Given in ED Current Medications Medications Dose Ordered Sig/Shobha Route Start Time Stop Time Status Last Admin Dose Admin Diphenhydramine HCl 25 mg ONCE ONCE IVP 12/24/22 14:30 12/24/22 14:31 DC 12/24/22 14:51 25 MG Iohexol 100 ml ONCE ONCE IV 12/24/22 14:30 12/24/22 14:31 DC 12/24/22 14:38 80 ML Prochlorperazine Edisylate 10 mg ONCE ONCE IV 12/24/22 14:30 12/24/22 14:31 DC 12/24/22 14:52 10 MG Sodium Chloride 100 ml ONCE ONCE IV 12/24/22 14:30 12/24/22 14:31 DC 12/24/22 14:38 90 ML Vital Signs/I&O 12/24/22 14:15 Temp 37.1 Pulse 95 Resp 20 B/P (MAP) 121/87 (98) Pulse Ox 97 O2 Delivery Room Air Capillary Refill : Less Than 3 Seconds Blood Pressure Mean: 98 Progress Note : Progress Note 62-year-old male with above history coming in due to fever of unknown origin. ABCs were intact and vitals were stable on presentation initially. Later on, he did have rigors in the ER, I suspect he is developing a fever. He is not due for Tylenol or ibuprofen at this time. Heart rate to go up to around 110. He was given IV fluids at that time. White blood cell count normal, lactate normal, CRP elevated around 6 more than yesterday, creatinine slightly elevated at 1.44 more than yesterday, normal ESR, negative troponin, normal TSH. EBV panel, SPEP, and tick panel drawn and are pending. Given the fever for essent ially 2 weeks, obvious concern for lymphoma versus deep space infection. CT chest, abdomen, and pelvis negative for acute findings. He did have headache, CT head was also negative for internal bleeding per my interpretation. I contacted Dr. Scott, he will admit the patient under observation for further evaluation and management. We will give the patient doxycycline while pending the tick panel. If he develops a fever while inpatient, they will do blood cultures. Diagnostic Imaging Diagonstic Imaging: CT (head, chest/abd/pelvis) Comments [facility] [place] [place] NAME: VIVEK FIERRO [facility] REC#: [id number] PT STATUS: REG ER : 1960 PHYSICIAN: JUSTIN BRAND MD ADMIT DATE: 12/24/22/ER Draft Date of Exam:12/24/22 CT HEAD WO PROCEDURE: CT head without contrast. TECHNIQUE: Multiple contiguous axial images were obtained through the brain without the use of intravenous contrast. Auto Exposure Controls were utilized during the CT exam to meet ALARA standards for radiation dose reduction. INDICATION: Fever and head pain, history of intracranial hemorrhage. Its compared with study 04/03/2016. Small area of encephalomalacia in the right parietal lobe posteriorly at the site of prior hemorrhage noted as an expected interval evolutionary change. No residual or recurrent intracerebral hemorrhage and no edema. No mass effect, hydrocephalus or evidence for elevated pressures. No sulcal effacement. The basilar cisterns patent. Orbits, sinuses and calvarium nonacute. IMPRESSION: No hemorrhage, edema or acute abnormalities. Dictated on workstation # [id number] Dict: 12/24/22 1440 Trans: 12/24/[address] [facility] [id number] Interpreted by: SRI RODRIGUEZ Electronically signed by: [facility] [place] [place] NAME: VIVEK FIERRO [facility] REC#: [id number] PT STATUS: REG ER : 1960 PHYSICIAN: JUSTIN BRAND MD ADMIT DATE: 12/24/22/ER Draft Date of Exam:12/24/22 CT CHEST/ABDOMEN/PELVIS W PROCEDURE: CT chest, abdomen, and pelvis with contrast. TECHNIQUE: Multiple contiguous axial images were obtained through the chest, abdomen, and pelvis after the administration of intravenous contrast. Auto Exposure Controls were utilized during the CT exam to meet ALARA standards for radiation dose reduction. INDICATION: 2 weeks history of fever, head pain, history of intracranial hemorrhage and history of COVID. Compared with study 07/10/2017 There is no axillary, hilar or mediastinal lymphadenopathy. The lungs clear. No lung mass with some chronic focal tree-in-bud nodularity in the right lower lobe stable from 2018 and chronic. No pneumonia. No edema. No effusion. No pneumothorax. No acute or suspect chest wall pathology. Abdomen pelvis: Hepatic steatosis chronic. Spleen size upper limits but stable no focal splenic lesion there are renal cortical cysts cysts simple and benign. No hydronephrosis. No findings of renal neoplastic infiltration. The adrenals and pancreas negative. There is no abdominal pelvic lymphadenopathy. No ascites. No omental infiltration. No bowel, biliary or urinary tract obstruction. There is a noninflamed diverticular disease of the sigmoid. There is no appendicitis. Prostate, seminal vesicles and urinary bladder unremarkable. The bony structures nonacute. Impression: No findings to suggest thoracic abdominal or pelvic involvement by neoplasm, obstructive features inflammatory processes, hemorrhage or other acute abnormalities. Dictated on workstation # [id number] Dict: 12/24/22 1449 Trans: 12/24/[address] [facility] [id number] Interpreted by: SRI RODRIGUEZ Electronically signed by: Departure Impression Primary Impression: Fever of unknown origin Disposition: ADMITTED INPATIENT Condition: Stable Admissions Decision to Admit Reason: Admit from ER (General) Decision to Admit/Date: Dec 24, 2022 Time/Decision to Admit Time: 15:10 Departure-Patient Inst. Referrals: KORY HOLDER MD (PCP/Family) Primary Care Physician JUSTIN BRAND MD Dec 24, 2022 14:28
[2022-12-24] MEDS ORDERED: diphenhydrAMINE INJ 50 MG/ML VIAL IVP ONE (14:30)
[2022-12-24] MEDS ORDERED: IOHEXOL 350 MG/ML 100 ML (OMNIPAQUE 350) VIAL IV ONE (14:30)
[2022-12-24] MEDS ORDERED: HOLD METFORMIN - RECEIVED CONTRAST 20 ML VIAL IV SCH (14:30)
[2022-12-24] MEDS ORDERED: PROCHLORPERAZINE INJ 10 MG/2ML VIAL IV ONE (14:30)
[2022-12-24] MEDS ORDERED: NS 100 ML (IVPB) BAG IV ONE (14:30)
[2022-12-24 14:32] LABS: BASOPHILS % (AUTO) 1 % (0-10); EOSINOPHILS % (AUTO) 0 % (0-10); HEMATOCRIT 46 % (40-54); HEMOGLOBIN 15.5 g/dL (13.3-17.7); LYMPHOCYTES # (AUTO) 0.6 10^3/uL (1.0-4.0); LYMPHOCYTES % (AUTO) 9 % (12-44); MEAN CORPUSCULAR HEMOGLOBIN 32 pg (25-34); MEAN CORPUSCULAR HGB CONC 34 g/dL (32-36); MEAN CORPUSCULAR VOLUME 93 fL (80-99); MEAN PLATELET VOLUME 8.6 fL (9.0-12.2); MONOCYTES # (AUTO) 0.2 10^3/uL (0.0-1.0); MONOCYTES % (AUTO) 4 % (0-12); NEUTROPHILS # (AUTO) 5.7 10^3/uL (1.8-7.8); NEUTROPHILS % (AUTO) 87 % (42-75); PLATELET COUNT 157 10^3/uL (130-400); WHITE BLOOD COUNT 6.5 10^3/uL (4.3-11.0)
[2022-12-24 14:38] LABS: ALBUMIN 4.5 GM/DL (3.2-4.5); CHLORIDE 105 MMOL/L (98-107); SODIUM 139 MMOL/L (135-145)
[2022-12-24 14:39] LABS: CALCIUM 9.5 MG/DL (8.5-10.1)
[2022-12-24 14:41] LABS: GLUCOSE 123 MG/DL (70-105); TOTAL PROTEIN 8.5 GM/DL (6.4-8.2)
[2022-12-24 14:42] LABS: CARBON DIOXIDE 22 MMOL/L (21-32)
[2022-12-24 14:43] LABS: BILIRUBIN,TOTAL 1.1 MG/DL (0.1-1.0)
[2022-12-24 14:44] LABS: ALKALINE PHOSPHATASE 91 U/L (40-136); CREATININE SERUM 1.44 MG/DL (0.60-1.30); GFR ESTIMATED 55
--- NOTE | 2022-12-24 14:44 | Diagnostic Imaging Report ---
PROCEDURE: CT head without contrast. TECHNIQUE: Multiple contiguous axial images were obtained through the brain without the use of intravenous contrast. Auto Exposure Controls were utilized during the CT exam to meet ALARA standards for radiation dose reduction. INDICATION: Fever and head pain, history of intracranial hemorrhage. Its compared with study 04/03/2016. Small area of encephalomalacia in the right parietal lobe posteriorly at the site of prior hemorrhage noted as an expected interval evolutionary change. No residual or recurrent intracerebral hemorrhage and no edema. No mass effect, hydrocephalus or evidence for elevated pressures. No sulcal effacement. The basilar cisterns patent. Orbits, sinuses and calvarium nonacute. IMPRESSION: No hemorrhage, edema or acute abnormalities. Dictated by: Dictated on workstation # [id number]
[2022-12-24 14:45] LABS: BUN/CREATININE RATIO 8
[2022-12-24 14:47] LABS: ALANINE AMINOTRANSFERASE 105 U/L (0-55)
[2022-12-24 14:48] LABS: CREATINE KINASE 84 U/L (30-200)
[2022-12-24 14:50] LABS: BAND NEUTROPHILS 1 %; LYMPHOCYTES % (MANUAL) 14 %; MONOCYTES % (MANUAL) 5 %; NEUTROPHILS % (MANUAL) 80 %; RBC MORPH NORMAL
[2022-12-24 14:59] LABS: ERYTHROCYTE SEDIMENTATION RATE 28 MM/HR (0-30)
[2022-12-24] MEDS ORDERED: ACETAMINOPHEN 500 MG TABLET PO SCH ×2 (15:00→17:00)
--- NOTE | 2022-12-24 15:00 | Diagnostic Imaging Report ---
PROCEDURE: CT chest, abdomen, and pelvis with contrast. TECHNIQUE: Multiple contiguous axial images were obtained through the chest, abdomen, and pelvis after the administration of intravenous contrast. Auto Exposure Controls were utilized during the CT exam to meet ALARA standards for radiation dose reduction. INDICATION: 2 weeks history of fever, head pain, history of intracranial hemorrhage and history of COVID. Compared with study 07/10/2017 There is no axillary, hilar or mediastinal lymphadenopathy. The lungs clear. No lung mass with some chronic focal tree-in-bud nodularity in the right lower lobe stable from 2018 and chronic. No pneumonia. No edema. No effusion. No pneumothorax. No acute or suspect chest wall pathology. Abdomen pelvis: Hepatic steatosis chronic. Spleen size upper limits but stable no focal splenic lesion there are renal cortical cysts cysts simple and benign. No hydronephrosis. No findings of renal neoplastic infiltration. The adrenals and pancreas negative. There is no abdominal pelvic lymphadenopathy. No ascites. No omental infiltration. No bowel, biliary or urinary tract obstruction. There is a noninflamed diverticular disease of the sigmoid. There is no appendicitis. Prostate, seminal vesicles and urinary bladder unremarkable. The bony structures nonacute. Impression: No findings to suggest thoracic abdominal or pelvic involvement by neoplasm, obstructive features inflammatory processes, hemorrhage or other acute abnormalities. Report was faxed to [facility] by dahiana at 3:24PM. Dictated by: Dictated on workstation # [id number]
[2022-12-24] MEDS ORDERED: ONDANSETRON INJECTION 4 MG/2 ML (SDV) IVP PRN ×2 (16:15→21:00)
[2022-12-24] MEDS ORDERED: CATHETER FLUSH 10 ML SYR IV PRN (16:15)
[2022-12-24 16:22] VITALS: BP 154/77
[2022-12-24] MEDS ORDERED: ACETAMINOPHEN 500 MG TABLET PO PRN (16:45)
[2022-12-24] MEDS ORDERED: RT-ALBUTEROL SULF 2.5 MG/3 ML PRE-MIX VIAL INH PRN (17:00)
[2022-12-24] MEDS ORDERED: ACETAMINOPHEN 325 MG TABLET ONE (17:13)
[2022-12-24] MEDS: ACETAMINOPHEN 325 MG TABLET PO PRN ×2 (17:18→23:32)
[2022-12-24 19:20] VITALS: BP 110/68
[2022-12-24] MEDS ORDERED: IBUPROFEN 200 MG TABLET PO SCH (20:00)
[2022-12-24] MEDS ORDERED: PROMETHAZINE INJ 25 MG/ML VIAL IVP PRN (21:00)
[2022-12-24] MEDS: CATHETER FLUSH 10 ML SYR IV SCH (21:18)
[2022-12-24] MEDS ORDERED: ASPI-999 PO (23:01)
[2022-12-24] MEDS ORDERED: OMEG100032 PO (23:05)
[2022-12-24 23:37] VITALS: BP 147/74
[2022-12-25 04:26] VITALS: BP 133/81
[2022-12-25 06:07] LABS: BASOPHILS % (AUTO) 0 % (0-10); EOSINOPHILS % (AUTO) 0 % (0-10); HEMATOCRIT 42 % (40-54); HEMOGLOBIN 13.7 g/dL (13.3-17.7); LYMPHOCYTES # (AUTO) 0.9 10^3/uL (1.0-4.0); LYMPHOCYTES % (AUTO) 18 % (12-44); MEAN CORPUSCULAR HEMOGLOBIN 31 pg (25-34); MEAN CORPUSCULAR HGB CONC 33 g/dL (32-36); MEAN CORPUSCULAR VOLUME 93 fL (80-99); MEAN PLATELET VOLUME 8.9 fL (9.0-12.2); MONOCYTES # (AUTO) 0.2 10^3/uL (0.0-1.0); MONOCYTES % (AUTO) 5 % (0-12); NEUTROPHILS # (AUTO) 3.7 10^3/uL (1.8-7.8); NEUTROPHILS % (AUTO) 76 % (42-75); PLATELET COUNT 138 10^3/uL (130-400); WHITE BLOOD COUNT 4.8 10^3/uL (4.3-11.0)
[2022-12-25 06:21] LABS: CREATININE SERUM 1.14 MG/DL (0.60-1.30); POTASSIUM 4.4 MMOL/L (3.6-5.0); TOTAL PROTEIN 7.3 GM/DL (6.4-8.2)
[2022-12-25] MEDS: CATHETER FLUSH 10 ML SYR IV SCH ×3 (06:30→20:18)
[2022-12-25 06:41] LABS: LYMPHOCYTES % (MANUAL) 19 %; MONOCYTES % (MANUAL) 3 %; NEUTROPHILS % (MANUAL) 78 %; RBC MORPH NORMAL
[2022-12-25 07:27] VITALS: BP 133/75
[2022-12-25] MEDS: CLOPIDOGREL 75 MG TABLET PO SCH (07:30)
[2022-12-25] MEDS: FAMOTIDINE 20 MG TABLET PO SCH (07:30)
[2022-12-25] MEDS: LOSARTAN 50 MG TABLET PO SCH (07:30)
[2022-12-25] MEDS: ACETAMINOPHEN 325 MG TABLET PO PRN ×2 (07:30→16:02)
[2022-12-25 11:22] VITALS: BP 108/72
[2022-12-25] MEDS ORDERED: NS 100 ML (IVPB) BAG IV ONE (13:00)
[2022-12-25] MEDS ORDERED: IOHEXOL 350 MG/ML 100 ML (OMNIPAQUE 350) VIAL IV ONE (13:00)
--- NOTE | 2022-12-25 13:00 | Diagnostic Imaging Report ---
PROCEDURE: CT maxillofacial with contrast. TECHNIQUE: After intravenous administration of contrast, axial images were obtained through the face and reformatted into coronal and sagittal planes. Auto Exposure Controls were utilized during the CT exam to meet ALARA standards for radiation dose reduction. INDICATION: Fever with tooth pain. COMPARISON: None available. FINDINGS: Multifocal dental amalgam is present from multiple fillings. Allowing for the streak artifact associated with the metal, there is no periapical lucency to suggest periodontal abscess. No fracture in the mid face or mandible. Bilateral maxillary, ethmoid, sphenoid, and frontal sinuses have no air-fluid levels. Trace mucosal thickening in the ethmoid and frontal sinuses. Visualized aspects of the brain are unremarkable. Orbits are normal in appearance. IMPRESSION: No periodontal disease or periodontal abscess. Dictated by: Dictated on workstation # [id number]
[2022-12-25 15:52] VITALS: BP 143/86
--- NOTE | 2022-12-25 19:11 | History & Physical-Hospitalist ---
History of Present Illness HPI/Chief Complaint Paul Mack is a 62 year old male with PMH HTN, HLD, CAD, stroke, who presented with persistent fevers. He started having arthralgias a couple months ago. He reports shoulder and hip pain. He had xrays done which showed no abnormalities. He ended up getting steroids which helped his symptoms. A couple weeks ago he started having fevers and chills. He has had headaches and body aches. He denies shortness of breath and cough. He denies dysuria, frequency, and urgency. He denies rash. He denies lymphadenopathy. He has no joint issues at this time. He denies ever having red, hot, or swollen joints. 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 He has some tooth sensitivity. He says he needs to have several teeth pulled and plans to get dental implants. He has a history of recurrent diverticulitis. He reports having a colonoscopy a couple years ago. He denies any travel outside of the country. He did go to [place] recently and he contracted COVID during that trip. He has had some workup done by his primary care physician, Dr. Rodriguez. He thinks the tick panel may have been positive. I was shown some labs from his "portal" which showed the following: CRP 8, SANAM negative, RF negative, dsDNA negative, Scleroderma Ab negative, CK mildly elevated. Source: patient, family Exam Limitations: no limitations Date Seen 12/25/22 Time Seen by a Provider: 11:45 Attending Physician Amarilis Rodriguez MD PCP Admitting Physician: Venus Cesar MD Attending Physician: Venus Cesar MD Referring Physician Date of Admission Dec 24, 2022 at 15:46 Home Medications & Allergies Home Medications Reviewed patient Home Medication Reconciliation performed by pharmacy medication reconciliations electronic organ technician and/or nursing. Patients Allergies have been reviewed. Allergies Allergies Coded Allergies Penicillins (Verified Allergy, Unknown, 04/03/16) atorvastatin (Verified Allergy, Unknown, 11/23/16) ceftriaxone (Verified Allergy, Unknown, 11/23/16) niacin (Verified Allergy, Unknown, 11/23/16) rosuvastatin (Verified Allergy, Unknown, 11/23/16) Past Ihupjgn-Bpetzl-Nvnobp Hx Patient Social History Tobacco Use?: No Use of E-Cig and/or Vaping dev: No Substance use?: No Alcohol Use?: No Alcohol type: Beer Alcohol Frequency: Once in a while Pt feels they are or have been: No Immunizations Up To Date First/Initial COVID19 Vaccinat: beginning may COVID19 Vaccination Robert: 06/04/20 Tetanus Booster (TDap): Less Than 5 Years Hepatitis A: No Hepatitis B: No Seasonal Allergies Seasonal Allergies: Yes (TAKES OTC COUGH MEDICINE) Current Status Advance Directives: Yes Advance Directive Location: Home Communicates: Verbally Primary Language: Turkish Preferred Spoken Language: Turkish Is interpretation needed?: No Past Medical History Surgeries: Coronary Stent Sleep Apnea Currently Using CPAP: Yes High Cholesterol, Hypertension Stroke Sexually Transmitted Disease: No HIV/AIDS: No Abdominal Hernia, Gastroesophageal Reflux, Diverticulosis Arthritis Loss of Vision: Denies Hearing Impairment: Denies Melanoma Did You Recieve Any Treatments: Yes What Type of Treatment Did You: Surgical Intervention Blood Disorders: No Family Medical History Heart Disease, Hypertension, Stroke Review of Systems Constitutional: fever, malaise Respiratory: no symptoms reported Cardiovascular: no symptoms reported Gastrointestinal: no symptoms reported Physical Exam Physical Exam Vital Signs Vital Signs - First Documented 12/24/22 14:15 Temp 37.1 Pulse 95 Resp 20 B/P (MAP) 121/87 (98) Pulse Ox 97 O2 Delivery Room Air Capillary Refill : Less Than 3 Seconds Height, Weight, BMI Height: 5'11.00" Weight: 185lbs. 0.0oz. 83.026768cz; 30.71 BMI Method:Stated General Appearance: No Apparent Distress, Obese HEENT: PERRL/EOMI, Pharynx Normal Neck: Normal Inspection, Supple Respiratory: Lungs Clear, Normal Breath Sounds, No Respiratory Distress Cardiovascular: Regular Rate, Rhythm, No Edema, No Murmur Gastrointestinal: Normal Bowel Sounds, Non Tender, Soft Extremity: Normal Inspection, Non Tender, No Pedal Edema Neurologic/Psychiatric: Alert, Oriented x3, No Motor/Sensory Deficits, Normal Mood/Affect, timing inspector II-XII Norm as Tested Skin: Normal Color, Warm/Dry Lymphatic: No Adenopathy Results Results/Procedures Labs Laboratory Tests 12/24/22 14:20 12/25/22 05:23 Patient resulted labs reviewed. Imaging: Reviewed Imaging Films, Reviewed Imaging Report Assessment/Plan Admission Diagnosis Fever of unknown origin Admission Status: Observation Assessment and Plan Fever of unknown origin Arthralgias Headache Diverticulosis Enlarged spleen PAZ Elevated d-dimer Elevated LFTs Persistent fevers >2 weeks UA negative COVID and Flu negative Strep negative [place]on negative ESR normal, CRP mildly elevated SANAM negative Anti-dsDNA negative RF negative, anti-CCP pending Scleroderma Ab negative TSH normal CK normal Ferritin pending SPEP pending Hepatitis panel pending EBV pending Tick panel pending Started on Doxycycline CT chest/abdomen/pelvis with spleen at upper limits of normal and diverticulosis, known renal cysts D-dimer elevated, US lower extremities ordered for tomorrow morning Consider outpatient PET scan if workup unrevealing Diagnosis/Problems Diagnosis/Problems (1) Fever of unknown origin Status: Acute (2) Arthralgia Status: Acute (3) Headache Status: Acute (4) Diverticulosis Status: Chronic (5) Enlargement of spleen Status: Acute (6) Renal cyst Status: Chronic (7) Elevated d-dimer Status: Acute (8) Elevated LFTs Status: Acute (9) History of diverticulitis Status: Chronic VENUS CESAR MD Dec 25, 2022 19:11
[2022-12-25 19:34] VITALS: BP 131/80
[2022-12-26] MEDS: ACETAMINOPHEN 325 MG TABLET PO PRN (00:22)
[2022-12-26 00:23] VITALS: BP 132/82
[2022-12-26 04:50] VITALS: BP 110/73
[2022-12-26] MEDS: CATHETER FLUSH 10 ML SYR IV SCH (05:26)
[2022-12-26 07:23] VITALS: BP 127/82
--- NOTE | 2022-12-26 08:57 | Diagnostic Imaging Report ---
PROCEDURE: US Venous Lower Ext Lon. TECHNIQUE: Multiple real-time grayscale images were obtained over the lower extremities in various projections, bilaterally. Additional duplex Doppler and color Doppler images were also obtained. INDICATION: Fevers and elevated D-dimer. There is no evidence of right or left lower extremity DVT. Both lower extremity deep venous systems demonstrate normal compressibility with normal response to augmentation and Valsalva. No fluid collection or mass is detected. IMPRESSION: No evidence of right or left lower extremity DVT. Dictated by: Dictated on workstation # [id number]
[2022-12-26 09:23] LABS: BASOPHILS % (AUTO) 1 % (0-10); EOSINOPHILS # (AUTO) 0.1 10^3/uL (0.0-0.3); EOSINOPHILS % (AUTO) 2 % (0-10); HEMATOCRIT 40 % (40-54); HEMOGLOBIN 13.7 g/dL (13.3-17.7); LYMPHOCYTES # (AUTO) 1.4 10^3/uL (1.0-4.0); LYMPHOCYTES % (AUTO) 36 % (12-44); MEAN CORPUSCULAR HEMOGLOBIN 31 pg (25-34); MEAN CORPUSCULAR HGB CONC 34 g/dL (32-36); MEAN CORPUSCULAR VOLUME 91 fL (80-99); MEAN PLATELET VOLUME 8.9 fL (9.0-12.2); MONOCYTES # (AUTO) 0.4 10^3/uL (0.0-1.0); MONOCYTES % (AUTO) 11 % (0-12); NEUTROPHILS % (AUTO) 50 % (42-75); PLATELET COUNT 155 10^3/uL (130-400)
[2022-12-26 09:36] LABS: ALBUMIN 3.9 GM/DL (3.2-4.5)
[2022-12-26 09:37] LABS: POTASSIUM 3.7 MMOL/L (3.6-5.0)
[2022-12-26 09:38] LABS: CALCIUM 9.4 MG/DL (8.5-10.1)
[2022-12-26 09:39] LABS: TOTAL PROTEIN 7.4 GM/DL (6.4-8.2)
[2022-12-26 09:41] LABS: BILIRUBIN,TOTAL 0.8 MG/DL (0.1-1.0)
[2022-12-26 09:43] LABS: CREATININE SERUM 0.9 MG/DL (0.60-1.30)
[2022-12-26] MEDS: CLOPIDOGREL 75 MG TABLET PO SCH (09:49)
[2022-12-26] MEDS: FAMOTIDINE 20 MG TABLET PO SCH (09:49)
[2022-12-26] MEDS: LOSARTAN 50 MG TABLET PO SCH (09:49)
[2022-12-26] MEDS ORDERED: DOXY100T2 PO (09:54)
[2022-12-26] MEDS ORDERED: TRM50T PO (09:54)
--- NOTE | 2022-12-26 09:54 | Discharge Summary ---
Diagnosis/Chief Complaint Date of Admission Dec 24, 2022 at 15:46 Date of Discharge Discharge Date: Dec 26, 2022 Discharge Diagnosis FUO suspected tick borne illness CAD HTN HLP Discharge Summary Discharge Physical Examination Allergies: Coded Allergies: Penicillins (Verified Allergy, Unknown, 04/03/16) atorvastatin (Verified Allergy, Unknown, 11/23/16) ceftriaxone (Verified Allergy, Unknown, 11/23/16) niacin (Verified Allergy, Unknown, 11/23/16) rosuvastatin (Verified Allergy, Unknown, 11/23/16) Vitals & I&Os Vital Signs Date Time Temp Pulse Resp B/P (MAP) Pulse Ox O2 Delivery O2 Flow Rate FiO2 12/26/22 12:04 35.8 74 17 131/83 (99) 94 Room Air General Appearance: Alert, Oriented X3, Cooperative Respiratory: Clear to Auscultation Cardiovascular: Regular Rate Psych/Mental Status: Mental Status NL Hospital Course Was the Problem List Reviewed?: Yes 62 year old male with a PMG HLD, CAD, stroke presents with persistent fevers. Patient reports having chills starting two years ago and arthralgias a couple of months ago- in his shoulders, elbows, and hips. Imaging showed no abnormalities. Patient reported getting steroids at the time which helped his symptoms. Two weeks ago the patient had fevers, chills, body aches, and headaches. He went to [facility] where he was diagnosed with strep- and his PCP placed him on Bactrim. Patient has still had cyclic fevers over the last two weeks. He reports that his fevers are alleviated by Tylenol and nothing makes them work. Patient recently had COVID in October. Patient D-Dimer was elevated at 1.63, ultrasound was unremarkable. Patient has been given oral doxylcyline throughout his stay. Today, he appears much better and reports feeling alot better. He is eager to be discharged. He will be discharged with oral antibiotics and will be following up closely with his PCP. BLAKE CORDERO Labs (last 24 hrs) Laboratory Tests 12/24/22 14:20: White Blood Count 6.5, Red Blood Count 4.91, Hemoglobin 15.5, Hematocrit 46, Mean Corpuscular Volume 93, Mean Corpuscular Hemoglobin 32, Mean Corpuscular Hemoglobin Concent 34, Red Cell Distribution Width 12.8, Platelet Count 157, Mean Platelet Volume 8.6L, Immature Granulocyte % (Auto) 1, Neutrophils (%) (Auto) 87H, Lymphocytes (%) (Auto) 9L, Monocytes (%) (Auto) 4, Eosinophils (%) (Auto) 0, Basophils (%) (Auto) 1, Neutrophils # (Auto) 5.7, Lymphocytes # (Auto) 0.6L, Monocytes # (Auto) 0.2, Eosinophils # (Auto) 0.0, Basophils # (Auto) 0.0, Immature Granulocyte # (Auto) 0.0, Neutrophils % (Manual) 80, Lymphocytes % (Manual) 14, Monocytes % (Manual) 5, Band Neutrophils 1, Blood Morphology Comment NORMAL, Erythrocyte Sedimentation Rate 28, Sodium Level 139, Potassium Level 4.0, Chloride Level 105, Carbon Dioxide Level 22, Anion Gap 12, Blood Urea Nitrogen 12, Creatinine 1.44H, Estimat Glomerular Filtration Rate 55, BUN/Creatinine Ratio 8, Glucose Level 123H, Lactic Acid Level 0.99, Calcium Level 9.5, Corrected Calcium 9.1, Magnesium Level 2.0, Total Bilirubin 1.1H, Aspartate Amino Transf (AST/SGOT) 58H, Alanine Aminotransferase (ALT/SGPT) 105H, Alkaline Phosphatase 91, Total Creatine Kinase 84, Troponin I < 0.028, C- Reactive Protein High Sensitivity 6.74H, Total Protein 8.5H, Total Protein (PEP) 7.9, Albumin 4.5 12/24/22 14:31: D-Dimer 1.63H, Lactate Dehydrogenase 298H, Thyroid Stimulating Hormone (TSH) 0.80 12/24/22 16:58: Ferritin 1034.9H 12/24/22 17:03: Hepatitis A IgM Antibody Non-Reactive, Hepatitis B Surface Antigen Non-Reactive, Hepatitis B Core IgM Antibody Non-Reactive, Hepatitis C Antibody Non-Reactive 12/25/22 05:10: HIV (1&2) Ag and Ab Screen Referral Non-Reactive 12/25/22 05:23: White Blood Count 4.8, Red Blood Count 4.46, Hemoglobin 13.7, Hematocrit 42, Mean Corpuscular Volume 93, Mean Corpuscular Hemoglobin 31, Mean Corpuscular Hemoglobin Concent 33, Red Cell Distribution Width 13.0, Platelet Count 138, Mean Platelet Volume 8.9L, Immature Granulocyte % (Auto) 0, Neutrophils (%) (Auto) 76H, Lymphocytes (%) (Auto) 18, Monocytes (%) (Auto) 5, Eosinophils (%) (Auto) 0, Basophils (%) (Auto) 0, Neutrophils # (Auto) 3.7, Lymphocytes # (Auto) 0.9L, Monocytes # (Auto) 0.2, Eosinophils # (Auto) 0.0, Basophils # (Auto) 0.0, Immature Granulocyte # (Auto) 0.0, Neutrophils % (Manual) 78, Lymphocytes % ( Manual) 19, Monocytes % (Manual) 3, Blood Morphology Comment NORMAL, Sodium Level 138, Potassium Level 4.4, Chloride Level 106, Carbon Dioxide Level 20L, Anion Gap 12, Blood Urea Nitrogen 11, Creatinine 1.14, Estimat Glomerular Filtration Rate 72, BUN/Creatinine Ratio 10, Glucose Level 103, Calcium Level 9.0, Corrected Calcium 9.0, Total Bilirubin 1.0, Aspartate Amino Transf (AST/SGOT) 54H, Alanine Aminotransferase (ALT/SGPT) 100H, Alkaline Phosphatase 82, Total Protein 7.3, Albumin 4.0, Cyclic Citrullinated Peptide <20.0 12/26/22 09:15: White Blood Count 4.0L, Red Blood Count 4.37, Hemoglobin 13.7, Hematocrit 40, Mean Corpuscular Volume 91, Mean Corpuscular Hemoglobin 31, Mean Corpuscular Hemoglobin Concent 34, Red Cell Distribution Width 12.8, Platelet Count 155, Mean Platelet Volume 8.9L, Immature Granulocyte % (Auto) 1, Neutrophils (%) (Auto) 50, Lymphocytes (%) (Auto) 36, Monocytes (%) (Auto) 11, Eosinophils (%) (Auto) 2, Basophils (%) (Auto) 1, Neutrophils # (Auto) 2.0, Lymphocytes # (Auto) 1.4, Monocytes # (Auto) 0.4, Eosinophils # (Auto) 0.1, Basophils # (Auto) 0.0, Immature Granulocyte # (Auto) 0.0, Sodium Level 139, Potassium Level 3.7, Chloride Level 106, Carbon Dioxide Level 23, Anion Gap 10, Blood Urea Nitrogen 15, Creatinine 0.90, Estimat Glomerular Filtration Rate 96, BUN/Creatinine Ratio 17, Glucose Level 128H, Calcium Level 9.4, Corrected Calcium 9.5, Total Bilirubin 0.8, Aspartate Amino Transf (AST/SGOT) 57H, Alanine Aminotransferase (ALT/SGPT) 113H, Alkaline Phosphatase 90, Total Protein 7.4, Albumin 3.9 Microbiology 12/24/22 Blood Culture - Preliminary, Resulted Pending Labs Microbiology Date/Time Source Procedure Growth Status 12/24/22 16:58 Peripheral Rt Ac Blood Culture - Preliminary Resulted 12/24/22 16:58 Peripheral Rt Hand Blood Culture - Preliminary Resulted Laboratory Tests 12/24/22 14:20: White Blood Count 6.5, Red Blood Count 4.91, Hemoglobin 15.5, Hematocrit 46, Mean Corpuscular Volume 93, Mean Corpuscular Hemoglobin 32, Mean Corpuscular Hemoglobin Concent 34, Red Cell Distribution Width 12.8, Platelet Count 157, Mean Platelet Volume 8.6, Immature Granulocyte % (Auto) 1, Neutrophils (%) (Auto) 87, Lymphocytes (%) (Auto) 9, Monocytes (%) (Auto) 4, Eosinophils (%) (Auto) 0, Basophils (%) (Auto) 1, Neutrophils # (Auto) 5.7, Lymphocytes # (Auto) 0.6, Monocytes # (Auto) 0.2, Eosinophils # (Auto) 0.0, Basophils # (Auto) 0.0, Immature Granulocyte # (Auto) 0.0, Neutrophils % (Manual) 80, Lymphocytes % (Manual) 14, Monocytes % (Manual) 5, Band Neutrophils 1, Blood Morphology Comment NORMAL, Erythrocyte Sedimentation Rate 28, Sodium Level 139, Potassium Level 4.0, Chloride Level 105, Carbon Dioxide Level 22, Anion Gap 12, Blood Urea Nitrogen 12, Creatinine 1.44, Estimat Glomerular Filtration Rate 55, BUN/Creatinine Ratio 8, Glucose Level 123, Lactic Acid Level 0.99, Calcium Level 9.5, Corrected Calcium 9.1, Magnesium Level 2.0, Total Bilirubin 1.1, Aspartate Amino Transf (AST/SGOT) 58, Alanine Aminotransferase (ALT/SGPT) 105, Alkaline Phosphatase 91, Total Creatine Kinase 84, Troponin I < 0.028, C-Reactive Protein High Sensitivity 6.74, Total Protein 8.5, Total Protein (PEP) 7.9, Albumin 4.5, Evens-Singh Virus Capsid Ag IgG Ab [Pending], Evens-Singh Capsid Ag IgG Interp [Pending], Evens-Singh Virus Capsid Ag IgM Ab [Pending], Evens-Singh Capsid Ag IgM Interp [Pending], Evens-Singh Virus Early Antigen Ab [Pending], Evens- Singh Early Antigen Interp [Pending], Evens-Singh Nuclear Ag Ab Titer [Pending], Evens-Singh Nuclear Ag IgG Interp [Pending] 12/24/22 14:31: D-Dimer 1.63, Lactate Dehydrogenase 298, Thyroid Stimulating Hormone (TSH) 0.80 12/24/22 16:58: Ferritin 1034.9 12/24/22 17:03: Lyme Disease Screen IgG & IgM Ab [Pending], Lyme Antibody Interpretation [Pending], Ehrlichia chaffeensis IgG Antibody [Pending], Ehrlichia chaffeensis IgM Antibody [Pending], Hepatitis A IgM Antibody Non-Reactive, Hepatitis B Surface Antigen Non-Reactive, Hepatitis B Core IgM Antibody Non-Reactive, Hepatitis C Antibody Non-Reactive, Spotted Fever Group IgG Antibody [Pending], Spotted Fever Group IgM Antibody [Pending], [place] Antibody [Pending] 12/25/22 05:10: HIV (1&2) Ag and Ab Screen Referral Non-Reactive 12/25/22 05:23: White Blood Count 4.8, Red Blood Count 4.46, Hemoglobin 13.7, Hematocrit 42, Mean Corpuscular Volume 93, Mean Corpuscular Hemoglobin 31, Mean Corpuscular Hemoglobin Concent 33, Red Cell Distribution Width 13.0, Platelet Count 138, Mean Platelet Volume 8.9, Immature Granulocyte % (Auto) 0, Neutrophils (%) (Auto) 76, Lymphocytes (%) (Auto) 18, Monocytes (%) (Auto) 5, Eosinophils (%) (Auto) 0, Basophils (%) (Auto) 0, Neutrophils # (Auto) 3.7, Lymphocytes # (Auto) 0.9, Monocytes # (Auto) 0.2, Eosinophils # (Auto) 0.0, Basophils # (Auto) 0.0, Immature Granulocyte # (Auto) 0.0, Neutrophils % (Manual) 78, Lymphocytes % (Manual) 19, Monocytes % (Manual) 3, Blood Morphology Comment NORMAL, Sodium Level 138, Potassium Level 4.4, Chloride Level 106, Carbon Dioxide Level 20, Anion Gap 12, Blood Urea Nitrogen 11, Creatinine 1.14, Estimat Glomerular Filtration Rate 72, BUN/Creatinine Ratio 10, Glucose Level 103, Calcium Level 9.0, Corrected Calcium 9.0, Total Bilirubin 1.0, Aspartate Amino Transf (AST/SGOT) 54, Alanine Aminotransferase (ALT/SGPT) 100, Alkaline Phosphatase 82, Total Protein 7.3, Albumin 4.0, Cyclic Citrullinated Peptide <20.0, Anti-Nucl ear Antibody Screen [Pending] 12/26/22 09:15: White Blood Count 4.0, Red Blood Count 4.37, Hemoglobin 13.7, Hematocrit 40, Mean Corpuscular Volume 91, Mean Corpuscular Hemoglobin 31, Mean Corpuscular Hemoglobin Concent 34, Red Cell Distribution Width 12.8, Platelet Count 155, Mean Platelet Volume 8.9, Immature Granulocyte % (Auto) 1, Neutrophils (%) (Auto) 50, Lymphocytes (%) (Auto) 36, Monocytes (%) (Auto) 11, Eosinophils (%) (Auto) 2, Basophils (%) (Auto) 1, Neutrophils # (Auto) 2.0, Lymphocytes # (Auto) 1.4, Monocytes # (Auto) 0.4, Eosinophils # (Auto) 0.1, Basophils # (Auto) 0.0, Immature Granulocyte # (Auto) 0.0, Sodium Level 139, Potassium Level 3.7, Chloride Level 106, Carbon Dioxide Level 23, Anion Gap 10, Blood Urea Nitrogen 15, Creatinine 0.90, Estimat Glomerular Filtration Rate 96, BUN/Creatinine Ratio 17, Glucose Level 128, Calcium Level 9.4, Corrected Calcium 9.5, Total Bilirubin 0.8, Aspartate Amino Transf (AST/SGOT) 57, Alanine Aminotransferase (ALT/SGPT) 113, Alkaline Phosphatase 90, Total Protein 7.4, Albumin 3.9 Discharge Home Medications: Active Scripts Active Tramadol HCl 50 Mg Tablet 50 Mg PO Q6H PRN Doxycycline Hyclate 100 Mg Tablet 100 Mg PO BID Fish Oil 1,000 mg Softgel (Woronoco-3/Dha/Epa/Fish Oil) 1,000 Mg (120 Mg-180 Mg) Capsule 1,400 Mg PO DAILY Aspirin 81 Mg Tab.chew 81 Mg PO DAILY Reported Metoprolol Succinate 25 Mg Tab.er.24h 25 Mg PO DAILY Clopidogrel (Clopidogrel Bisulfate) 75 Mg Tablet 75 Mg PO DAILY Benzonatate 100 Mg Capsule 100 Mg PO Q6H PRN Amlodipine Besylate 5 Mg Tablet 5 Mg PO DAILY Fenofibrate (Fenofibrate Nanocrystallized) 145 Mg Tablet 145 Mg PO DAILY Pantoprazole Sodium 40 Mg Tablet.dr 40 Mg PO DAILY Losartan Potassium 50 Mg Tablet 50 Mg PO DAILY Instructions to patient/family Please see electronic discharge instructions given to patient. ALE LU DO Dec 26, 2022 09:54
--- NOTE | 2022-12-26 10:06 | Progress Note ---
BLAKE CORDERO 12/26/22 1006: Progress Note 62 year old male with a PMG HLD, CAD, stroke presents with persistent fevers. Patient reports having chills starting two years ago and arthralgias a couple of months ago- in his shoulders, elbows, and hips. Imaging showed no abnormalities. Patient reported getting steroids at the time which helped his symptoms. Two weeks ago the patient had fevers, chills, body aches, and headaches. He went to [facility] where he was diagnosed with strep- and his PCP placed him on Bactrim. Patient has still had cyclic fevers over the last two weeks. He reports that his fevers are alleviated by Tylenol and nothing makes them work. Patient recently had COVID in October. Patient D-Dimer was elevated at 1.63, ultrasound was unremarkable. Patient has been given oral doxylcyline throughout his stay. Today, he appears much better and reports feeling alot better. He is eager to be discharged. He will be discharged with oral antibiotics and will be following up closely with his PCP. MICAELA LU DO 12/27/22 0427: Supervisory-Addendum Brief Verification & Attestation Participated in pt care: history, MDM, physical Personally performed: exam, history, MDM, supervision of care Care discussed with: Medical Student Procedures: n/a Results interpretation: Verified all documentation Verification and Attestation of Medical Student E/M Service A medical student performed and documented this service in my presence. I reviewed and verified all information documented by the medical student and made modifications to such information, when appropriate. I personally performed the physical exam and medical decision making. Micaela Lu Dec 27, 2022,04:27 BLAKE CORDERO Dec 26, 2022 10:06 MICAELA LU DO Dec 27, 2022 04:27
[2022-12-26 12:04] VITALS: BP 131/83
[2022-12-26 19:53] LABS: HEPATITIS C ANTIBODY C Non-Reactive (Non-Reactive)
== END 2022-12-26 12:47 | disposition home or self-care (01) ==
LOC: EDUNIT# 14:01 → ER 14:03 → 4TH 15:46 → UNDOADMOB 15:46 → 4TH 15:52 → UNDODISOB 12-26 12:47
PROVIDERS: ADMIT Internal Medicine; ATTEND Internal Medicine
DX: R50.9 Fever, unspecified (principal); R51.9 Headache, unspecified; G47.30 Sleep apnea, unspecified; Z99.89 Dependence on other enabling machines and devices
CPT/HCPCS: 70450; 70487; 71260; 74177; 80053 ×3; 80074; 82550; 82728; 83605; 83615; 83735; 84155; 84165; 84443; 84484; 85007 ×2; 85025; 85027 ×2; 85379; 85652; 86038; 86039; 86141; 86200; 86618; 86663; 86664; 86665 ×2; 86666 ×2; 86668; 86757 ×2; 87040; 87389; 93970; 96361; 96374; 96375 ×2; 96376; 99284; G0378; 36415